=== PATIENT | female | born 1955 | race Caucasian/White ===

== ENCOUNTER 2017-05-20 16:54 | Emergency (ER) | payer BC ==
[~2017-05-20] VITALS: Ht 160 cm; Wt 99.8 kg
--- NOTE | 2017-05-20 17:05 | Emergency Room Report ---
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 Clinical Suspician of Infection? Mental Status: Sepsis Risk: Have you (or family members/close friends) recently traveled outside the [place]? If Yes, where/when: Have you had exposure to infectious disease within the past month? TB? Other? Specify: Source patient, RN notes reviewed Exam Limitations no limitations Comment Pt is on Xarelto for blood clots and pulmonary emboli and today was pulling weeds and fell about 4 feet and hit head on concrete. No LOC but pain in head, neck and left wrist and abrasions left hand and hematoma on right side of occiput. Cardiac Chest Pain Chest pain indicative of cardiac No ALLERGIES Coded Allergies: codeine (HALLUCINATIONS 05/20/17) Home Medications Reported Medications [XARELTO] (Unknown Dose) PO DAILY Hydrochlorothiazide (Hydrochlorothiazide 12.5MG) 12.5 MG PO DAILY Omeprazole 20 MG PO DAILY [METOPROLOL] (Unknown Dose) PO DAILY [LISINOPRIL] (Unknown Dose) PO DAILY History Medical History Surgical Hx Previous Surgery? Tonsillectomy, Laparoscopy to look at tubes and ovaries Review of Systems All Other Systems Reviewed and Negative Constitutional see HPI Musculoskeletal see HPI Psychiatric/Neurological see HPI Physical Exam Vital Signs Vital Signs Date Time Temp Pulse Resp B/P Pulse O2 O2 Flow FiO2 Ox Delivery Rate 05/208 54 18 142/46 95 05/20 1832 18 05/20 1759 47 16 160/55 95 05/20 1659 98.7 51 18 94 General Appearance normal appearance, WD/WN, no apparent distress Eye Exam - bilateral eye normal exam, bilateral eye PERRL, bilateral eye EOMI Neck tender midline Respiratory Status No: respiratory distress. Lung Sounds bilateral: normal breath sounds. 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 No Results/Orders Current Medication Orders Sig/Jimmy Start time Last Medication Dose Route Stop Time Status Admin Diphtheria/Pertussis/ 0 .STK-MED ONE 05/20 1830 DC Tetanus Vacc IM Hydrocodone Bitart/ 1 TAB ONCE ONE 05/20 1830 DCr 05/20 Acetaminophen PO 05/20 1831 183 Hydrocodone Bitart/ 0 .STK-MED ONE 05/20 1830 DCr Acetaminophen PO Diphtheria/Pertussis/ 0.5 ML ONCE ONE 05/20 171 DC 05/20 Tetanus Vacc IM 05/20 1716 1833 Orders Procedure Date/time Status DIET-NOTHING BY MOUTH 05/[address] HEAD REQ 05/[address] SCAN REQ 05/20 1706 Complete Procedures Laceration/Wound Repair Laceration/Wound Repair Risks/benefits discussed with pt/guardian? Yes Tetanus status not up to date, Given Tdap in ED Wound Location head Wound Length (cm) 5 Wound's Depth, Shape sucutaneous tissue, irregular, stellate Wound Explored clean Risk of retained FB explained to pt/guardian? No Irrigated w/ Saline (ccs) 5 Wound Prep Hibiclens, Saline Anesthesia 1% Lidocaine Volume Anesthetic (ccs) 8 Wound Debrided none Wound Repaired With sutures Suture Size/Type 3:0, Ethilon Layer Closure No Total Number Sutures 7 Sterile Dressing Applied Yes Splint Applied No Departure Departure Time of Disposition 1899 Disposition DC Home or Self Care(routine) Clinical Impression Primary Impression: Closed head injury Qualifiers: Encounter type: initial encounter Qualified Code: S09.90XA - Unspecified injury of head, initial encounter Secondary Impressions: Occipital scalp laceration Qualifiers: Encounter type: initial encounter Qualified Code: S01.01XA - Laceration without foreign body of scalp, initial encounter Condition STABLE Patient Instructions Closed Head Injury, Concussion, DI for Closed Head Injury, DI for Concussion, DI for Laceration Repair, Laceration Repair Additional Instructions Follow Head Injury instructions for next 24 to 48 hours. Return to the ED with any worsening symptoms. Followup with PCP in 3 days to check stitches and in 10 days to remove them Discharge Counseling Counseled pt/family regarding diagnosis, test results, medications/RX, home care, follow up needs Prescriptions Current Visit Scripts Cephalexin (Keflex 500MG) 500 MG PO QID #40 CAP ED Critical Care Critical Care No If Critical Care minutes are documented, the time involved in the performance of seperately reportable procedures was not counted toward critical care time documented. I directly delivered medical care to this critically ill and/or injured patient. Timely evaluation and treatment was necessary to address the significant organ system(s) dysfunction present in this patient. at 1905
--- NOTE | 2017-05-20 18:06 | RADIOLOGY REPORT PS360 ---
CT HEAD WITHOUT CONTRAST CT BONE WINDOWS included ORDERING PHYSICIAN : Chen Akhtar MD PATIENT AGE: 62 years GENDER: Female PROCEDURE: Routine axial images headwithout contrast. Brain & bone windows HISTORY: FALL WITH HEAD INJURY. Patient still 4 feet onto concrete stairs. Laceration right posterior head overlying posterior superior skull on right.. Patient on blood thinners COMPARISON: No previous studies for comparison FINDINGS: No acute intracranial findings. No hemorrhage. . No mass effect or mass lesion. No subdural nor extra-axial collection. Ventricles & basal cisterns appear satisfactory. Gant & white matter patterns satisfactory. The posterior fossa appear satisfactory and unremarkable. The skull is intact. Prominent scalp hematoma overlying the right posterior parietal bone towards convexity.. Overlying dressing seen here. Underlying skull intact in this region. The visualized portions of the paranasal sinuses are clear. Mastoid air cells, middle ear & IACs are unremarkable. IMPRESSION:...... No acute intracranial findings. No hemorrhage. No subdural collections. Prominent scalp hematoma overlying the posterior right parietal bone.-Underlying skull intact no skull fracture
--- NOTE | 2017-05-20 18:17 | RADIOLOGY REPORT PS360 ---
CT CERVICAL SPINE W/O CONT HISTORY: FALL WITH HEAD INJURY fell hit head on concrete posterior right parietal region. Headache. Neck pain Patient Age: 62 years: Female Ordering Physician: Chen Akhtar MD TECHNIQUE: Helical CT scanning performed through cervical spine; with sagittal and coronal reconstructions on CT workstation. COMPARISON :None FINDINGS Cervical spine intact, with no fracture nor subluxation. . The vertebral bodies appear intact with no compression fracture.. Nonspecific straightening cervical spine may merely be positional or can reflect muscle spasm from recent injury. Prevertebral soft tissues appear satisfactory. The C1-C2 relationships appear satisfactory & normal. Facets intact With normal relationships.. There are degenerative disc changes and spondylosis at several levels cervical spine. Only scant degenerative changes involving facets. C2/3. Disc intact. C3/4 disc well-maintained C4/5. Degenerative disc space narrowing with diffuse posterior hypertrophic ridging, with posterior spurring seen to the right and left paracentral. Features slightly indents the thecal sac and yield at least mild bilateral foraminal and recess encroachment. Degenerative features most notable at this level C5-C6 minor disc space narrowing but no significant findings otherwise. C6/7. Prominent disc space narrowing with mild posterior hypertrophic ridging slightly more evident than left. The slightly the thecal sac the left encroach upon entry left neural foramen: C7/T1. Moderate disc space narrowing mild uncovertebral joint hypertrophy T1/2. Marked degenerative disc space narrowing with moderate uncovertebral joint hypertrophy bilaterally which yields mild/moderate bilateral foraminal encroachment, most notable to the left. Thyroid gland appears generous bilaterally. Borderline to mildly enlarged. Scattered small/moderate nodes are seen throughout the neck... IMPRESSION 1. no acute fracture nor subluxation cervical spine. 2. Nonspecific straightening. May merely be positional or could reflect reflect muscle spasm from recent injury 3.Multilevel Degenerative changes cervical spine as detailed in text. Most notable degenerative disc space narrowing, cervical spondylosis & posterior ridging is seen at C4/5, & T1/T2. Moderate disc space narrowing seen at C 6/7 and C7/T1
--- NOTE | 2017-05-20 18:50 | RADIOLOGY REPORT PS360 ---
WRIST-3 VIEWS-LT portable HISTORY: fall with injuryfall with injury. Patient Age: 62 years: Female Ordering Physician: Chen Akhtar MD TECHNIQUE: 3 views left wrist-portable exam COMPARISON :None available FINDINGS Somewhat unclear as to why this study was performed portable however there are fairly good images. No prominent fracture. The carpals appear intact. Distal ulna intact. However on frontal projection there is very subtle cortical contour irregularity along the radial margin of the cortex here at radial styloid of the distal radius. This Only seen on on the AP projection.. Could reflect minor cortical contour variation,, and undulation but but if there is focal pain in this site ( along the radial margin of radial styloid)) would recommend follow-up studies.. A follow-up wrist series in the department possibly old magnification views may be of benefit Borderline/mild narrowing at the first carpal-metacarpal joint suggesting scant degenerative changes here IMPRESSION. No prominent nor definitive fracture. A would note very slight cortical undulation or irregularity seen seen at the radial margin of radial styloid.. This May reflect normal variation but there is focal pain here follow-up studies recommended as outlined above
[2017-05-20 19:17] VITALS: BP 138/54
--- OUTSIDE RECORDS SUMMARY | 2017-05-30 23:24 | External Medical Summary Rpt | CCD ---
Author Author , YOSEF NAVSA Address Unknown Phone Purpose Continuity of Care Document - 09-14-2011 through 2016
--- OUTSIDE RECORDS SUMMARY | 2017-05-30 23:24 | External Medical Summary Rpt | CCD ---
Author Author [employer] Organization [employer] Address Unknown Phone Unavailable Purpose Continuity of Care Document - through 2016
--- OUTSIDE RECORDS SUMMARY | 2017-05-30 23:24 | External Medical Summary Rpt | CCD ---
Author Author , YOSEF NAVAS Address Unknown Phone [email or web address] Purpose Continuity of Care Document - 09-14-2011 through 2016
--- OUTSIDE RECORDS SUMMARY | 2017-05-30 23:24 | External Medical Summary Rpt | CCD ---
Demographics Preferred Language Kazakh Marital Status Unknown Anabaptism Affiliation Unknown Race Unknown Ethnic Group Unknown Author Author , YOSEF NAVAS Address Unknown Phone Immunization Unable to retrieve immunization data due to connection failure with Immunization Registry. Please try again later.
--- OUTSIDE RECORDS SUMMARY | 2017-05-30 23:24 | External Medical Summary Rpt | CCD ---
Demographics Preferred Language Ivorian Marital Status Unknown Baptist Affiliation Unknown Race Unknown Ethnic Group Unknown Author Author , YOSEF NAVAS Address Unknown Phone Immunization Unable to retrieve immunization data due to connection failure with Immunization Registry. Please try again later.
--- OUTSIDE RECORDS SUMMARY | 2017-05-30 23:27 | External Medical Summary Rpt ---
Author Author [employer], [employer] Organization [employer] Address Unknown Phone Unavailable Results WRIST LT Observa Value Referen Units Interpr Notes Date tion ce etation Range TEXT [place] No No No No May 23 DIAGNOS informa informa informa informa 2016 IS [place] tion in tion in tion in tion in 12:07 BATTERY l source source source source PM HealthE data data data data MRMCDep artment of Diagnos [id number] [place] [phone] Patient : Sex: Age: Unit Number: STEVE BERMUDEZ F F 62 [id number] 180Orde ne Physici an: Status: Date of : Account Number: LINUS BROWN APRN REG CLI 953 [id number] ritika Lundberg an: Locatio n: Room Number: Date of 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 No additio nalfrac tures are identif ied. There are no lytic or blastic lesions identif ied.Imp ression :Questi onable lucency along the medial hamate or pisifor m whichco uld represe nt acute nondisp laced fractur eSite 1 ____Ele ctronic ally signed by: ALEXANDER FIGUEROASD ate: 7Time: 12:10__ ___KINDRA Nevarez BEAR MDDicta vicente: 7 1207Sig kenroy : 7 1210 SURGICAL PATHOLOGY IV INITIAL Observa Value Referen Units Interpr Notes Date tion ce etation Range TEXT PRE-OPE No No No No May 15 DIAGNOS RATIVE informa informa informa informa 2016 IS DIAGNOS tion in tion in tion in tion in BATTERY IS source source source source data data data data TEXT ACTINIC No No No No May 15 DIAGNOS informa informa informa informa 2016 IS KERATOS tion in tion in tion in tion in BATTERY IS VS. source source source source BASAL data data data data CELL CARCINO MA TEXT GROSS No No No No May 15 DIAGNOS DESCRIP informa informa informa informa 2016 IS TION tion in tion in tion in tion in BATTERY source source source source data data data data TEXT The No No No No May 15 DIAGNOS specime informa informa informa informa 2016 IS n is tion in tion in tion in tion in BATTERY receive source source source source d data data data data within formali n in one contain er labeled "right lateral superio r TEXT chest". No No No No May 15 DIAGNOS It informa informa informa informa 2016 IS consist tion in tion in tion in tion in BATTERY s of a source source source source pichardo data data data data shaved portion of skin measuri ng 10 mm. in diamete r x less TEXT than 1 No No No No May 15 DIAGNOS mm. informa informa informa informa 2017 IS thick. tion in tion in tion in tion in BATTERY It is source source source source bisecte data data data data d and entirel y submitt ed in one block. TEXT MICROSC No No No No May 15 DIAGNOS OPIC informa informa informa informa 2017 IS INTERPR tion in tion in tion in tion in BATTERY ETATION source source source source data data data data TEXT SKIN, No No No No May 15 DIAGNOS RIGHT informa informa informa informa 2017 IS LATERAL tion in tion in tion in tion in BATTERY source source source source SUPERIO data data data data R CHEST, SHAVE BIOPSY: TEXT LICHENO No No No No May 15 DIAGNOS ID informa informa informa informa 2017 IS KERATOS tion in tion in tion in tion in BATTERY IS source source source source data data data data TEXT CODES: No No No No May 15 DIAGNOS [id number] informa informa informa informa 2017 IS - Skin, tion in tion in tion in tion in BATTERY NOS source source source source data data data data TEXT [id number] No No No No May 15 DIAGNOS - informa informa informa informa 2017 IS Thorax, tion in tion in tion in tion in BATTERY NOS source source source source data data data data TEXT SKIN No No No No May 15 DIAGNOS informa informa informa informa 2017 IS tion in tion in tion in tion in BATTERY source source source source data data data data TEXT [id number] No No No No May 15 DIAGNOS - informa informa informa informa 2017 IS SKIN\\F\\ tion in tion in tion in tion in BATTERY Hyperke source source source source ratosis data data data data TEXT [id number] No No No No May 15 DIAGNOS - informa informa informa informa 2017 IS SKIN\\F\\ tion in tion in tion in tion in BATTERY Shave source source source source biopsy data data data data TEXT COPIES No No No No May 15 DIAGNOS TO: informa informa informa informa 2017 IS tion in tion in tion in tion in BATTERY source source source source data data data data TEXT TAYLOR,S No No No No May 15 DIAGNOS SONYA E informa informa informa informa 2017 IS MD tion in tion in tion in tion in BATTERY source source source source data data data data TEXT 111 No No No No May 15 DIAGNOS LISA informgeri informa informa informa 2017 IS DRIVE tion in tion in tion in tion in BATTERY source source source source data data data data TEXT POB 6 No No No No May 15 DIAGNOS informa informa informa informa 2017 IS tion in tion in tion in tion in BATTERY source source source source data data data data TEXT DANVILL No No No No May 15 DIAGNOS E, [place] inform[place] informa informa [place] 2017 [place] [address] tion in tion in tion in tion in BATTERY source source source source data data data data TEXT [id number] No No No No May 15 DIAGNOS 6-0916 informa informa informa informa 2017 IS tion in tion in tion in tion in BATTERY source source source source data data data data TEXT WORKMAN No No No No May 15 DIAGNOS ,TOVA informa informa informa informa 2017 IS PA tion in tion in tion in tion in BATTERY source source source source data data data data TEXT 111 No No No No May 15 DIAGNOS LISA informa informa informa informa [address], PO tion in tion in tion in tion in BATTERY [address] source source source source data data data data TEXT DANVILL No No No No May 15 DIAGNOS E, [place] inform[place] [address] tion in tion in tion in tion in BATTERY source source source source data data data data TEXT [phone] No No No No May 15 DIAGNOS 6-0916 informa informa informa informa 2017 IS tion in tion in tion in tion in BATTERY source source source source data data data data TEXT ICD No No No No May 15 DIAGNOS CODES: informa informa informa informa 2017 IS 700 - tion in tion in tion in tion in BATTERY CORNS source source source source AND data data data data CALLOSI TIES TEXT ORDER No No No No May 15 DIAGNOS QUERIES informa informa informa informa 2017 IS : tion in tion in tion in tion in BATTERY source source source source data data data data TEXT Labels No No No No May 15 DIAGNOS 1 informa informa informa informa 2017 IS tion in tion in tion in tion in BATTERY source source source source data data data data TEXT PROCEDU No No No No May 15 DIAGNOS RES: informa informa informa informa 2017 IS SURGICA tion in tion in tion in tion in BATTERY L source source source source PATHOL data data data data ( ) TEXT SURGICA No No No No May 15 DIAGNOS L informa informa informa informa 2017 IS (05/16/ tion in tion in tion in tion in BATTERY 17-1016 source source source source ) data data data data TEXT TISSUES No No No No May 15 DIAGNOS : informa informa informa informa 2016 IS tion in tion in tion in tion in BATTERY source source source source data data data data TEXT SKIN - No No No No May 15 DIAGNOS RIGHT informa informa informa informa 2016 IS LATERAL tion in tion in tion in tion in BATTERY source source source source SUPERIO data data data data R CHEST TEXT Signed No No No No May 15 DIAGNOS informa informa informa informa 2016 IS ___(sig tion in tion in tion in tion in BATTERY nature source source source source on data data data data file)__ __ MARCE BEAL MD 7 0958 MADIA Observa Value Referen Units Interpr Notes Date tion ce etation Range TEXT [place] No No No No Feb 27 DIAGNOS informa informa informa informa 2016 IS [place] tion in tion in tion in tion in 2:02 PM BATTERY l source source source source HealthE data data data data MRMCDep artment of Diagnos [id number] [place] [phone] Patient : Sex: Age: Unit Number: STEVE BERMUDEZ F 61 [id number] 180Orde ring Physici an: Status: Date of : Account Number: BILLY SANZ MD REG CLI 953 [id number] ritika Physici an: Locatio n: Room Number: Date of Exam:LUCIA LYON [facility] 7REASON FOR EXAM: SCREEN Z12.31R NEDRA FOR VISIT: R92.0,M AMMOGRA PHIC MICROCA LCIFICA TION [facility] # [id number] __Diagn ostic digital mammogr am with CAD and tomosyn thesisI NDICATI ON: Diagnos tic mammogr am. Patient reports prior benignr ight breast biopsy; mother with a history of breast cancerC OMPARIS ON: 017, 016, 016, 015,06/2014 TECHNIQ UE: Bilater al digital MLO, CC, ML views with CAD andtomo synthes is.FIND INGS:Th e breast parench yma is heterog eneousl y dense which limits thesens itivity and specifi city of mammogr aphy. Biopsy clips arenote d at the previou [facility] describ ed concern ing calcifi cations withthe se calcifi cations now removed . There are no masses, suspici ous calcifi cations or areas of archite ctural distort ion.Imp ression :Negati ve Mammogr am (BIRADS categor y 1).Rose er A.RECOM MENDATI ON: Yearly screeni ng mammogr am.Site 2 ____Ele ctronic ally signed by: YOSSI Herrera te: 7Time: 14:06__ ___SAVANNA DOVE MDDicta vicente: 7 1402Sig kenroy : 7 1406 THYROID STIMULATING HORMONE Observa Value Referen Units Interpr Notes Date tion ce etation Range THYROID < 0.02 0.46 - uIU/mL Low No December 27 4.68 informa 2016 STIMULA tion in 3:33 PM TING source HORMONE data FREE T4 Observa Value Referen Units Interpr Notes Date tion ce etation Range FREE T4 1.29 0.78 - ng/dL Normal No December 27 2.19 informa 2016 tion in 3:06 PM source data [id number] Observa Value Referen Units Interpr Notes Date tion ce etation Range TEXT [place] No No No No December 26 DIAGNOS informa informa informa informa 2016 IS [place] tion in tion in tion in tion in 1:43 PM BATTERY l source source source source HealthE data data data data MRMCDep artment of Diagnos [id number] [place] [phone] Patient : Sex: Age: Unit Number: STEVE BERMUDEZ F 61 [id number] 180Orde ne Physici an: Status: Date of : Account Number: 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 No focal hot or cold nodule isappre ciated. The 4 hour tracer uptake is 1.8% (normal 5-20%). 24 hour uptakev alue is 6.6% (normal 7-35%). Impress ion:Low thyroid uptake at 4 and 24 hours. Correla te forthyr oiditis . Exogeno us iodine uptake can give a similar appeara nce.Sit e 2 ____Ele ctronic ally signed by: YOSSI Herrera te: 7Time: 13:46__ ___SAVANNA DOVE MDDicta vicente: 7 1343Sig kenroy : 7 1346 METHYLMALONIC ACID, SERUM Observa Value Referen Units Interpr Notes Date tion ce etation Range METHYLM 126 0 - 378 nmol/L Normal Perform Oct 31 ALONIC ed at: 2017 ACID, BN - 6:14 AM SERUM [facility] [place], [place] [address] 61Lab Directo r: Joey Ferro MD, Phone: [phone] VITAMIN B12 Observa Value Referen Units Interpr Notes Date ti ce etation Range VITAMIN 583 239 - pg/mL Normal No Nov 13 B12 931 informa 2017 tion in 5:23 PM source data ABDPELINF Observa Value Referen Units Interpr Notes Date ti ce etation Range TEXT Vincenzo No No No No Oct 24 DIAGNOS informa informa informa informa 2017 IS [place] tion in tion in tion in tion in 6:38 AM BATTERY l source source source source HealthE data data data data MRMCDep artment of Diagnos [id number] [facility] JURGEN rodríguez [phone] Patient : Sex: Age: Unit Number: STEVE BERMUDEZ F 61 [id number] 180Orde ring Physici an: Status: Date of : Account Number: KAELA WELCH MD [facility] ER 953 [id number] ritika Lundberg an: Locatio n: Room Number: Date of Exam:LUCIA LYON EE 7REASON FOR EXAM: rlq abdomin alREASO N FOR VISIT: SEVERE ABDOMIN AL PAIN-RT SIDEACC ESSION # [id number] _CT OF THE ABDOMEN AND PELVIS WITH IV CONTRAS T ONLYInd ication : Right lower quadran t painThi n axial imaging was perform ed through the abdomen and pelvisa fter IV contras t only. Multipl mariya reforma ts were thenper formed. Automat ed exposur e control was utilize d to optimiz edose reducti on.Surg ical history : NoneSma ll hiatal hernia is present . The liver, spleen, adrenal s,gallb ladder, pancrea s, are all unremar kable. Multipl e left renalcy sts are noted. Otherwi se kidneys are unremar kable. Urinary bladder and uterus are unremar kable. Appendi x is normal. Smallbo wel and colon are unremar kable. No bowel obstruc tion is seen.Peggy ng bases are clear. No free fluid or pneumop eritone um is seen.Im pressio n:No acute process is seen in the abdomen or pelvis to explain patient 's pain.Hi atal hernia with fluid filled esophag us. Further assessm entwith upper GI or endosco py may be helpful if clinica haroldo cated.S ite 1 ____Ele ctronic ally signed by: DAVON Reynolds te: 7Time: 07:57__ ___TIMO FOREST LOZANO MDDicta vicente: 7 0638Sig kenroy : 7 0757 C-REACTIVE PROTEIN Observa Value Referen Units Interpr Notes Date tion ce etation Range C-REACT < 0.5 <1.0 mg/dL Normal No Nov 09 LYNDSEY inform2016 PROTEIN tion in 10:48 source PM data TROPONIN I (INITIAL) Observa Value Referen Units Interpr Notes Date tion ce etation Range TROPONI < 0.010 <=0.034 ng/mL Normal <= Nov 09 N I 0.034 2016 (INITIA ( 10:39 L) PERCENT PM ILE OF NORMAL POPULAT ION)>= 0.120 (AMI CUTOFF) ALL RESULTS MUST BE CORRELA VICENTE WITH CLINICA L FINDING S COMPREHENSIVE METABOLIC PANEL Observa Value Referen Units Interpr Notes Date tion ce etation Range GLUCOSE 116 70 - mg/dL High No Nov 09 100 inform2016 tion in 10:29 source PM data BLOOD 17 7 - 25 mg/dL Normal No Nov 09 UREA 2016 NITROGE tion in 10:29 N source PM data CREATIN 0.94 0.50 - mg/dL Normal No Nov 09 INE 1.20 informa 2017 tion in 10:29 source PM data GLOMERU > 60 >60 No Normal GFR is Nov 09 LAR informa only 2017 FILTRAT tion in calcula 10:29 ION source vicente for PM RATE data patient s over 18 years of age anddoes not allow for race. Units are mL/min/ 1.73 m2. BUN/CRE 18.0 10.0 - No Normal No Nov 09 ATININE 20.0 informa informa 2017 RATIO tion in tion in 10:29 source source PM data data SODIUM 139 137 - mmol/L Normal No Nov 09 145 informa 2016 tion in 10:29 source PM data POTASSI 3.3 3.5 - mmol/L Low No Nov 09 UM 5.1 inform2016 tion in 10:29 source PM data CHLORID 101 98 - mEq/L Normal No Nov 09 E 109 informa 2016 tion in 10:29 source PM data CARBON 26.0 22.0 - mEq/L Normal No Nov 09 DIOXIDE 30.0 informa 2016 tion in 10:29 source PM data ANION 12.0 No No Normal No Nov 09 GAP informa informa informa 2017 tion in tion in tion in 10:29 source source source PM data data data CALCIUM 9.0 8.4 - mg/dL Normal No Nov 09 10.2 inform2016 tion in 10:29 source PM data TOTAL 7.7 6.3 - g/dL Normal No Nov 09 PROTEIN 8.2 inform2016 tion in 10:29 source PM data ALBUMIN 4.6 3.5 - g/dL Normal No Nov 09 5.0 informa 2016 tion in 10:29 source PM data BILIRUB 0.9 0.2 - mg/dL Normal No Nov 09 IN,TOTA 1.3 informa 2016 L tion in 10:29 source PM data ASPARTA 32 15 - 46 U/L Normal No Nov 09 TE inform2016 AMINOTR tion in 10:29 ANSFERA source PM SE/AST data ALANINE 39 13 - 69 U/L Normal No Nov 09 inform2016 AMINOTR tion in 10:29 ANSFERA source PM SE/ALT data ALKALIN 64 38 - U/L Normal No Nov 09 E 126 inform2016 PHOSPHA tion in 10:29 TASE source PM data AMYLASE Observa Value Referen Units Interpr Notes Date tion ce etation Range AMYLASE 62 30 - U/L Normal No Nov 09 110 informa 2017 tion in 10:29 source PM data LIPASE Observa Value Referen Units Interpr Notes Date tion ce etation Range LIPASE 61 23 - U/L Normal No Nov 09 300 informa 2016 tion in 10:29 source PM data CBC WITH AUTO DIFFERENTIAL Observa Value Referen Units Interpr Notes Date tion ce etation Range WHITE 8.12 4.00 - THOU/uL Normal No Nov 09 BLOOD 11.00 informa 2017 COUNT tion in 10:15 source PM data RED 5.27 4.20 - MILL/uL Normal No Nov 09 BLOOD 5.40 informa 2017 COUNT tion in 10:15 source PM data HEMOGLO 15.0 12.0 - g/dL Normal No Nov 09 BIN 16.0 informa 2017 tion in 10:15 source PM data HEMATOC 45.3 38.0 - % Normal No Nov 09 RIT 47.0 informa 2017 tion in 10:15 source PM data MEAN 86.0 82.0 - fL Normal No Nov 09 CORPUSC 100.0 informa 2017 ULAR tion in 10:15 VOLUME source PM data MEAN 28.5 26.0 - pg Normal No Nov 09 CORPUSC 33.0 informa 2017 ULAR tion in 10:15 HEMOGLO source PM BIN data MEAN 33.1 31.0 - g/dL Normal No Nov 09 CORPUSC 36.0 informa 2016 ULAR tion in 10:15 HGB source PM CONC data RED 13.7 11.5 - % Normal No Nov 09 CELL 14.5 informa 2017 DISTRIB tion in 10:15 UTION source PM WIDTH data PLATELE 288 150 - THOU/uL Normal No Nov 09 T COUNT 375 informa 2016 tion in 10:15 source PM data MEAN 9.0 8.6 - fL Normal No Nov 09 PLATELE 11.7 informa 2017 T tion in 10:15 VOLUME source PM data IMM < 3 <3 % Normal No Nov 09 GRANULO informa 2017 CYTE % tion in 10:15 source PM data NEUTROP 75.5 No % Normal No Nov 09 HILS % informa informa 2017 tion in tion in 10:15 source source PM data data LYMPH % 13.9 No % Normal No Nov 09 informa informa 2017 tion in tion in 10:15 source source PM data data MONO % 8.3 No % Normal No Nov 09 informa informa 2017 tion in tion in 10:15 source source PM data data EOS % 1.6 No % Normal No Nov 09 informa informa 2017 tion in tion in 10:15 source source PM data data BASO % 0.5 No % Normal No Nov 09 informa informa 2017 tion in tion in 10:15 source source PM data data NEUTROP 6.13 1.50 - THOU/uL Normal No Nov 09 HIL, 7.00 informa 2016 ABSOLUT tion in 10:15 E source PM data LYMPH, 1.13 1.00 - THOU/uL Normal No Nov 09 ABSOLUT 4.00 informa 2016 E tion in 10:15 source PM data MONO, 0.67 0.00 - THOU/uL Normal No Nov 09 ABSOLUT 1.00 informa 2016 E tion in 10:15 source PM data EOS, 0.13 0.00 - THOU/uL Normal No Nov 09 ABSOLUT 0.40 informa 2016 E tion in 10:15 source PM data BASO, 0.04 0.00 - THOU/uL Normal No Nov 09 ABSOLUT 0.20 informa 2016 E tion in 10:15 source PM data URINE CULTURE Observa Value Referen Units Interpr Notes Date tion ce etation Range URINE NO No No No No Nov 11 CULTURE GROWTH informa informa informa informa 2016 REPORT AT 2 tion in tion in tion in tion in 9:07 AM DAYS source source source source data data data data UA C\\T\\S IF INDICATED W/MICRO Observa Value Referen Units Interpr Notes Date tion ce etation Range COLOR YELLOW No No Normal No Nov 09 informa informa informa 2017 tion in tion in tion in 9:42 PM source source source data data data APPEARA HAZY No No Normal No Nov 09 NCE informa informa informa 2017 tion in tion in tion in 9:42 PM source source source data data data GLUCOSE NEGATIV NEGATIV mg/dL Normal No Nov 09 E E informa 2016 tion in 9:42 PM source data BILIRUB NEGATIV NEGATIV mg/dL Normal No Nov 09 IN E E informa 2016 tion in 9:42 PM source data KETONE NEGATIV NEGATIV mg/dL Normal No Nov 09 E E informa 2016 tion in 9:42 PM source data SPECIFI 1.016 1.003 - No Normal No Nov 09 C 1.035 informa informa 2017 GRAVITY tion in tion in 9:42 PM source source data data BLOOD >=1.0 NEGATIV mg/dL Abnorma No Nov 09 E l informa 2016 tion in 9:42 PM source data pH 5.0 5.0 - No Normal No Nov 09 9.0 informa informa 2017 tion in tion in 9:42 PM source source data data PROTEIN NEGATIV NEGATIV mg/dL Normal No Nov 09 E E informa 2016 tion in 9:42 PM source data UROBILI NORMAL <2 mg/dL Normal No Nov 09 NOGEN informa 2017 tion in 9:42 PM source data NITRITE NEGATIV NEGATIV No Normal No Nov 09 E E informa informa 2017 tion in tion in 9:42 PM source source data data LEUKOCY 250 NEGATIV LUZ MARINA/uL Abnorma No Nov 09 TE E l informa 2017 ESTERAS tion in 9:42 PM E source data RBC >30 No /hpf Normal No Nov 09 informa informa 2017 tion in tion in 9:42 PM source source data data WBC >30 No /hpf Normal No Nov 09 informa informa 2017 tion in tion in 9:42 PM source source data data SQUAMOU 0-5 No /hpf Normal No Nov 09 S informa informa 2017 EPITHEL tion in tion in 9:42 PM IAL source source CELLS data data CALCIUM 2+ No /hpf Normal No Nov 09 informa informa 2017 OXALATE tion in tion in 9:42 PM source source CRYSTAL data data S BACTERI TRACE No /hpf Normal No Nov 09 A informa informa 2017 tion in tion in 9:42 PM source source data data MUCUS TRACE No /lpf Normal No Nov 09 informa informa 2017 tion in tion in 9:42 PM source source data data Specime CLEAN No No No No Nov 09 n Type CATCH informa informa informa informa 2017 tion in tion in tion in tion in 9:25 PM source source source source data data data data BASIC METABOLIC PANEL Observa Value Referen Units Interpr Notes Date tion ce etation Range GLUCOSE 72 70 - mg/dL Normal No Nov 06 100 informa 2017 tion in 6:32 AM source data BLOOD 15 7 - 25 mg/dL Normal No Nov 06 UREA informa 2017 NITROGE tion in 6:32 AM N source data CREATIN 0.83 0.50 - mg/dL Normal No Nov 06 INE 1.20 informa 2017 tion in 6:32 AM source data GLOMERU > 60 >60 No Normal GFR is Mar 20 LAR informa only 2017 FILTRAT tion in calcula 6:32 AM ION source vicente for RATE data patient s over 18 years of age anddoes not allow for race. Units are mL/min/ 1.73 m2. BUN/CRE 18.0 10.0 - No Normal No Nov 06 ATININE 20.0 informa informa 2017 RATIO tion in tion in 6:32 AM source source data data SODIUM 141 137 - mmol/L Normal No Nov 06 145 informa 2016 tion in 6:32 AM source data POTASSI 4.2 3.5 - mmol/L Normal No Nov 06 UM 5.1 informa 2017 tion in 6:32 AM source data CHLORID 107 98 - mEq/L Normal No Nov 06 E 109 informa 2016 tion in 6:32 AM source data CARBON 26.7 22.0 - mEq/L Normal No Nov 06 DIOXIDE 30.0 informa 2017 tion in 6:32 AM source data CALCIUM 8.7 8.4 - mg/dL Normal No Nov 06 10.2 informa 2016 tion in 6:32 AM source data MAGNESIUM Observa Value Referen Units Interpr Notes Date tion ce etation Range MAGNESI 1.9 1.3 - mEq/L Normal No Nov 06 UM 1.9 informa 2017 tion in 6:32 AM source data LIPID PROFILE Observa Value Referen Units Interpr Notes Date tion ce etation Range CHOLEST 125 115 - mg/dL Normal No Nov 06 OTTO 200 informa 2017 tion in 6:32 AM source data TRIGLYC 74 <150 mg/dL Normal No Nov 06 ERIDES informa 2017 tion in 6:32 AM source data HDL 44 >39 mg/dL Normal No Nov 06 CHOLEST informa 2017 OTTO tion in 6:32 AM source data LDL 66 <100 mg/dL Normal No Nov 06 CHOLEST informa 2017 OTTO tion in 6:32 AM source data VLDL 15 No mg/dL Normal No Nov 06 CHOLEST informa informa 2017 OTTO tion in tion in 6:32 AM source source data data NON-HDL 81 No mg/dL Normal Non-HDL Nov 06 informa goal 2017 CHOLEST tion in is 6:32 AM OTTO source equival data ent to the LDL goal plus 30. CHOLEST 2.8 No No Normal No Nov 06 OTTO/HD informa informa informa 2017 L RATIO tion in tion in tion in 6:32 AM source source source data data data UA C\\T\\S IF INDICATED W/MICRO Observa Value Referen Units Interpr Notes Date tion ce etation Range COLOR COLORLE No No Normal No Nov 05 SS informa informa informa 2017 tion in tion in tion in 11:07 source source source AM data data data APPEARA CLEAR No No Normal No Nov 05 NCE informa informa informa 2017 tion in tion in tion in 11:07 source source source AM data data data GLUCOSE NEGATIV NEGATIV mg/dL Normal No Nov 05 E E informa 2016 tion in 11:07 source AM data BILIRUB NEGATIV NEGATIV mg/dL Normal No Nov 05 IN E E informa 2016 tion in 11:07 source AM data KETONE NEGATIV NEGATIV mg/dL Normal No Nov 05 E E informa 2016 tion in 11:07 source AM data SPECIFI 1.002 1.003 - No Low No Nov 05 C 1.035 informa informa 2017 GRAVITY tion in tion in 11:07 source source AM data data BLOOD NEGATIV NEGATIV mg/dL Normal No Nov 05 E E informa 2016 tion in 11:07 source AM data pH 8.0 5.0 - No Normal No Nov 05 9.0 informa informa 2017 tion in tion in 11:07 source source AM data data PROTEIN NEGATIV NEGATIV mg/dL Normal No Nov 05 E E informa 2016 tion in 11:07 source AM data UROBILI NORMAL <2 mg/dL Normal No Nov 05 NOGEN informa 2016 tion in 11:07 source AM data NITRITE NEGATIV NEGATIV No Normal No Nov 05 E E informa informa 2017 tion in tion in 11:07 source source AM data data LEUKOCY NEGATIV NEGATIV LUZ MARINA/uL Normal No Nov 05 TE E E informa 2017 ESTERAS tion in 11:07 E source AM data RBC 0-2 No /hpf Normal No Nov 05 informa informa 2017 tion in tion in 11:07 source source AM data data WBC 0-5 No /hpf Normal No Nov 05 informa informa 2017 tion in tion in 11:07 source source AM data data SQUAMOU 0-5 No /hpf Normal No Nov 05 S informa informa 2017 EPITHEL tion in tion in 11:07 IAL source source AM CELLS data data BACTERI NONE No /hpf Normal No Nov 05 A OBSERVE informa informa 2016 D tion in tion in 11:07 source source AM data data Specime CLEAN No No No No Nov 05 n Type CATCH informa informa informa informa 2017 tion in tion in tion in tion in 10:58 source source source source AM data data data data CXR1 Observa Value Referen Units Interpr Notes Date tion ce etation Range TEXT Vincenzo No No No No Nov 05 DIAGNOS informa informa informa informa 2017 IS McDowel tion in tion in tion in tion in 10:45 BATTERY l source source source source AM HealthE data data data data MRMCDep artment of Diagnos [id number] [place] [phone] Patient : Sex: Age: Unit Number: STEVE BERMUDEZ 61 [id number] 180Orde ne [place] an: Status: Date of : Account Number: KAELA WELCH MD [facility] 953 [id number] ritika Lundberg an: Locatio n: Room Number: Date of Exam:LUCIA LYON [facility] 7REASON FOR EXAM: chest pressur eREASON FOR VISIT: afib episode ACCESSI ON # [id number] __Front al view of the chestIN DICATIO N: Chest pain, atrial fibrill ationCO MPARISO N: [id number] INGS: Low lung volumes with vascula r wilver winter Calcifi edgranu aimee. Calcifi ed hilar and mediast inal lymph nodes.P atchy left basilar airspac e opacity . No pneumot horax. No edema.N o effusio n. Cardiom ediasti nal contour is within normal limits. Diaphra gm is unremar kable. No acute osseous abnorma lity.Im pressio n: Male patchy left basilar airspac e opacity whichco uld represe nt atelect asis or pneumon ia.Site 1 ____Ele ctronic ally signed by: YOSSI Herrera te: 7Time: 10:46__ ___SAVANNA DOVE MDDicta vicente: 7 1045Sig kenroy : 7 1046 TROPONIN I (INITIAL) Observa Value Referen Units Interpr Notes Date tion ce etation Range TROPONI < 0.010 <=0.034 ng/mL Normal <= Nov 05 N I 0.034 2016 (INITIA ( 10:26 L) PERCENT AM ILE OF NORMAL POPULAT ION)>= 0.120 (AMI CUTOFF) ALL RESULTS MUST BE CORRELA VICENTE WITH CLINICA L FINDING S THYROID STIMULATING HORMONE Observa Value Referen Units Interpr Notes Date tion ce etation Range THYROID 0.24 0.46 - uIU/mL Low No Nov 05 4.68 informa 2016 STIMULA tion in 3:09 PM TING source HORMONE data FREE T4 Observa Value Referen Units Interpr Notes Date tion ce etation Range FREE T4 1.89 0.78 - ng/dL Normal No Nov 05 2.19 informa 2016 tion in 2:55 PM source data COMPREHENSIVE METABOLIC PANEL Observa Value Referen Units Interpr Notes Date tion ce etation Range GLUCOSE 87 70 - mg/dL Normal No Nov 05 100 informa 2017 tion in 10:15 source AM data BLOOD 17 7 - 25 mg/dL Normal No Nov 05 UREA informa 2016 NITROGE tion in 10:15 N source AM data CREATIN 0.72 0.50 - mg/dL Normal No Nov 05 INE 1.20 informa 2017 tion in 10:15 source AM data GLOMERU > 60 >60 No Normal GFR is Nov 05 LAR informa only 2017 FILTRAT tion in calcula 10:15 ION source vicente for AM RATE data patient s over 18 years of age anddoes not allow for race. Units are mL/min/ 1.73 m2. BUN/CRE 24.0 10.0 - No High No Nov 05 ATININE 20.0 informa informa 2017 RATIO tion in tion in 10:15 source source AM data data SODIUM 143 137 - mmol/L Normal No Nov 05 145 informa 2016 tion in 10:15 source AM data POTASSI 3.2 3.5 - mmol/L Low No Nov 05 UM 5.1 informa 2016 tion in 10:15 source AM data CHLORID 104 98 - mEq/L Normal No Nov 05 E 109 informa 2016 tion in 10:15 source AM data CARBON 24.2 22.0 - mEq/L Normal No Nov 05 DIOXIDE 30.0 informa 2017 tion in 10:15 source AM data ANION 14.8 No No Normal No Nov 05 GAP informa informa informa 2017 tion in tion in tion in 10:15 source source source AM data data data CALCIUM 9.2 8.4 - mg/dL Normal No Nov 05 10.2 informa 2016 tion in 10:15 source AM data TOTAL 7.3 6.3 - g/dL Normal No Nov 05 PROTEIN 8.2 informa 2016 tion in 10:15 source AM data ALBUMIN 4.3 3.5 - g/dL Normal No Nov 05 5.0 informa 2017 tion in 10:15 source AM data BILIRUB 1.3 0.2 - mg/dL Normal No Nov 05 IN,TOTA 1.3 informa 2016 L tion in 10:15 source AM data ASPARTA 28 15 - 46 U/L Normal No Nov 05 TE informa 2016 AMINOTR tion in 10:15 ANSFERA source AM SE/AST data ALANINE 41 13 - 69 U/L Normal No Nov 05 inform2016 AMINOTR tion in 10:15 ANSFERA source AM SE/ALT data ALKALIN 87 38 - U/L Normal No Nov 05 E 126 informa 2016 PHOSPHA tion in 10:15 TASE source AM data PT\\T\\APTT Observa Value Referen Units Interpr Notes Date tion ce etation Range PROTHRO 12.2 9.5 - sec High No Nov 05 MBIN 11.4 inform2016 TIME tion in 10:15 source AM data INTERNA 1.15 No No Normal Interpr Oct 19 TIONAL informa informa etation 2017 NORMALI tion in tion in of INR 10:15 ZED source source AM RATIO data data (Soil Conservationist ational Normali zed Ratio)i s depende nt upon patient 's anticoa gulant therapy .Result s greater than or equal to 4.0 are conside redcrit ical. APTT 32.7 20.4 - sec Normal No Nov 05 33.0 inform2016 tion in 10:15 source AM data CBC WITH AUTO DIFFERENTIAL Observa Value Referen Units Interpr Notes Date tion ce etation Range WHITE 5.57 4.00 - THOU/uL Normal No Nov 05 BLOOD 11.00 inform2016 COUNT tion in 10:00 source AM data RED 5.33 4.20 - MILL/uL Normal No Nov 05 BLOOD 5.40 inform2016 COUNT tion in 10:00 source AM data HEMOGLO 15.2 12.0 - g/dL Normal No Nov 05 BIN 16.0 inform2016 tion in 10:00 source AM data HEMATOC 45.5 38.0 - % Normal No Nov 05 RIT 47.0 informa 2016 tion in 10:00 source AM data MEAN 85.4 82.0 - fL Normal No Nov 05 CORPUSC 100.0 informa 2016 ULAR tion in 10:00 VOLUME source AM data MEAN 28.5 26.0 - pg Normal No Nov 05 CORPUSC 33.0 informa 2016 ULAR tion in 10:00 HEMOGLO source AM BIN data MEAN 33.4 31.0 - g/dL Normal No Nov 05 CORPUSC 36.0 informa 2016 ULAR tion in 10:00 HGB source AM CONC data RED 13.6 11.5 - % Normal No Nov 05 CELL 14.5 informa 2016 DISTRIB tion in 10:00 UTION source AM WIDTH data PLATELE 242 150 - THOU/uL Normal No Nov 05 T COUNT 375 inform2016 tion in 10:00 source AM data MEAN 9.2 8.6 - fL Normal No Nov 05 PLATELE 11.7 informa 2016 T tion in 10:00 VOLUME source AM data IMM < 3 <3 % Normal No Nov 05 GRANULO informa 2017 CYTE % tion in 10:00 source AM data NEUTROP 51.9 No % Normal No Oct 19 HILS % informa informa 2017 tion in tion in 10:00 source source AM data data LYMPH % 30.3 No % Normal No Nov 05 informa informa 2017 tion in tion in 10:00 source source AM data data MONO % 13.8 No % Normal No Nov 05 informa informa 2017 tion in tion in 10:00 source source AM data data EOS % 3.1 No % Normal No Nov 05 informa informa 2017 tion in tion in 10:00 source source AM data data BASO % 0.7 No % Normal No Nov 05 informa informa 2017 tion in tion in 10:00 source source AM data data NEUTROP 2.89 1.50 - THOU/uL Normal No Nov 05 HIL, 7.00 informa 2016 ABSOLUT tion in 10:00 E source AM data LYMPH, 1.69 1.00 - THOU/uL Normal No Nov 05 ABSOLUT 4.00 informa 2016 E tion in 10:00 source AM data MONO, 0.77 0.00 - THOU/uL Normal No Nov 05 ABSOLUT 1.00 informa 2016 E tion in 10:00 source AM data EOS, 0.17 0.00 - THOU/uL Normal No Nov 05 ABSOLUT 0.40 informa 2016 E tion in 10:00 source AM data BASO, 0.04 0.00 - THOU/uL Normal No Nov 05 ABSOLUT 0.20 informa 2016 E tion in 10:00 source AM data BDHIP Observa Value Referen Units Interpr Notes Date tion ce etation Range TEXT Vincenzo No No No No Oct 6 DIAGNOS informa informa informa informa 2017 IS McDowel tion in tion in tion in tion in 8:09 AM BATTERY l source source source source HealthE data data data data MRMCDep artment of Diagnos [id number] [place] [phone] Patient : Sex: Age: Unit Number: STEVE BERMUDEZ F 61 [id number] 180Orde ne Physici an: Status: Date of : Account Number: RACHEL GOMEZ APRN REG CLI 953 [id number] ritika Physici an: Locatio n: Room Number: Date of Exam:LUCIA LYON [facility] 7REASON FOR EXAM:RE ASON FOR VISIT: UNIQUE [place],Z 78.0ACC ESSION # [id number] __Bone mineral density Compari son: NoneInd ication : Postmen opausal Bone mineral density for the lumbar spine as well of the leftfem ur is calcula vicente. The bone mineral density of the lumbars pine is calcula vicente at 1.162 g/cm2 giving a T-score of 1.0.Thi s places the lumbar spine in the normal categor y.The bone mineral density of the left femur is calcula vicente at1.044 g/cm2 giving a T-score of 0.8. This places the bonemin eral density of the left femur in the normal categor y.Impre ssion:N ormal bone mineral density .Site 2 ____Ele ctronic ally signed by: ALEXANDER RODRIGEZ ate: 7Time: 08:09__ ___KINDRA BEAR MDDicta vicente: 7 0809Sig kenroy : 7 0809 CALCITRIOL(1,25 DI-OH VIT D) Observa Value Referen Units Interpr Notes Date tion ce etation Range CALCITR 35.0 19.9 - pg/mL Normal Perform Feb 27 IOL(1,2 79.3 ed at: 2017 5 DI-OH BN - 3:10 PM VIT D) [facility] [place] [id number] [place], [place] [id number]Lab Directo r: Joey Ferro MD, Phone: [phone] COMPREHENSIVE METABOLIC PANEL Observa Value Referen Units Interpr Notes Date tion ce etation Range GLUCOSE 77 70 - mg/dL Normal No Feb 24 100 informa 2017 tion in 3:25 PM source data BLOOD 21 7 - 25 mg/dL Normal No Feb 24 UREA informa 2017 NITROGE tion in 3:25 PM N source data CREATIN 0.75 0.50 - mg/dL Normal No Feb 24 INE 1.20 informa 2017 tion in 3:25 PM source data GLOMERU > 60 >60 No Normal GFR is Feb 24 LAR informa only 2017 FILTRAT tion in calcula 3:25 PM ION source vicente for RATE data patient s over 18 years of age anddoes not allow for race. Units are mL/min/ 1.73 m2. BUN/CRE 28.0 10.0 - No High No Feb 24 ATININE 20.0 informa informa 2017 RATIO tion in tion in 3:25 PM source source data data SODIUM 144 137 - mmol/L Normal No Feb 24 145 informa 2016 tion in 3:25 PM source data POTASSI 3.7 3.5 - mmol/L Normal No Feb 24 UM 5.1 informa 2017 tion in 3:25 PM source data CHLORID 100 98 - mEq/L Normal No Feb 24 E 109 informa 2017 tion in 3:25 PM source data CARBON 30.0 22.0 - mEq/L Normal No Feb 24 DIOXIDE 30.0 informa 2017 tion in 3:25 PM source data CALCIUM 9.3 8.4 - mg/dL Normal No Feb 24 10.2 informa 2017 tion in 3:25 PM source data TOTAL 7.6 6.3 - g/dL Normal No Feb 24 PROTEIN 8.2 informa 2017 tion in 3:25 PM source data ALBUMIN 4.5 3.5 - g/dL Normal No b 24 5.0 informa 2017 tion in 3:25 PM source data BILIRUB 1.1 0.2 - mg/dL Normal No b 24 IN,TOTA 1.3 informa 2016 L tion in 3:25 PM source data ASPARTA 96 15 - 46 U/L High No Sep 24 TE informa 2016 AMINOTR tion in 3:25 PM ANSFERA source SE/AST data ALANINE 32 13 - 69 U/L Normal No Sep 24 inform 2017 AMINOTR tion in 3:25 PM ANSFERA source SE/ALT data ALKALIN 75 38 - U/L Normal No Sep 24 E 126 inform2016 PHOSPHA tion in 3:25 PM TASE source data HEMOGLOBIN A1C Observa Value Referen Units Interpr Notes Date tion ce etation Range HEMOGLO 5.2 <6.0 % Normal Hgb A1C Sep 24 BIN A1C 2017 Correla 3:13 PM tion to Glucose HgbA1c% Mean Plasma Glucose 6% 135 mg/dL7% 170 mg/dL8% 205 mg/dL9% 240 mg/dL10 % 275 mg/dL11 % 310 mg/dL12 % 345 mg/dL CBC WITH AUTO DIFFERENTIAL Observa Value Referen Units Interpr Notes Date tion ce etation Range WHITE 6.31 4.00 - THOU/uL Normal No Sep 24 BLOOD 11.00 inform2016 COUNT tion in 2:50 PM source data RED 5.26 4.20 - MILL/uL Normal No Sep 24 BLOOD 5.40 2016 COUNT tion in 2:50 PM source data HEMOGLO 15.4 12.0 - g/dL Normal No Sep 24 BIN 16.0 informa 2017 tion in 2:50 PM source data HEMATOC 46.7 38.0 - % Normal No Sep 24 RIT 47.0 informa 2017 tion in 2:50 PM source data MEAN 88.8 82.0 - fL Normal No Sep 24 CORPUSC 100.0 informa 2016 ULAR tion in 2:50 PM VOLUME source data MEAN 29.3 26.0 - pg Normal No Sep 24 CORPUSC 33.0 informa 2016 ULAR tion in 2:50 PM HEMOGLO source BIN data MEAN 33.0 31.0 - g/dL Normal No Feb 24 CORPUSC 36.0 informa 2017 ULAR tion in 2:50 PM HGB source CONC data RED 14.4 11.5 - % Normal No Feb 24 CELL 14.5 informa 2017 DISTRIB tion in 2:50 PM UTION source WIDTH data PLATELE 275 150 - THOU/uL Normal No Feb 24 T COUNT 375 informa 2017 tion in 2:50 PM source data MEAN 9.5 8.6 - fL Normal No Feb 24 PLATELE 11.7 informa 2017 T tion in 2:50 PM VOLUME source data IMM < 3 <3 % Normal No Feb 24 GRANULO informa 2017 CYTE % tion in 2:50 PM source data NEUTROP 65.5 No % Normal No Feb 24 HILS % informa informa 2017 tion in tion in 2:50 PM source source data data LYMPH % 19.2 No % Normal No Feb 24 informa informa 2017 tion in tion in 2:50 PM source source data data MONO % 11.4 No % Normal No Feb 24 informa informa 2017 tion in tion in 2:50 PM source source data data EOS % 3.2 No % Normal No Feb 24 informa informa 2017 tion in tion in 2:50 PM source source data data BASO % 0.5 No % Normal No Feb 24 informa informa 2017 tion in tion in 2:50 PM source source data data NEUTROP 4.14 1.50 - THOU/uL Normal No Feb 24 HIL, 7.00 informa 2017 ABSOLUT tion in 2:50 PM E source data LYMPH, 1.21 1.00 - THOU/uL Normal No Feb 24 ABSOLUT 4.00 informa 2016 E tion in 2:50 PM source data MONO, 0.72 0.00 - THOU/uL Normal No Feb 24 ABSOLUT 1.00 informa 2017 E tion in 2:50 PM source data EOS, 0.20 0.00 - THOU/uL Normal No Feb 24 ABSOLUT 0.40 informa 2017 E tion in 2:50 PM source data BASO, 0.03 0.00 - THOU/uL Normal No Feb 24 ABSOLUT 0.20 informa 2016 E tion in 2:50 PM source data THY Observa Value Referen Units Interpr Notes Date tion ce etation Range TEXT [place] No No No No Sep 29 DIAGNOS informa informa informa informa 2017 IS McDowel tion in tion in tion in tion in 2:40 PM BATTERY l source source source source HealthE data data data data MRMCDep artment of Diagnos [id number] [place] [phone] Patient : Sex: Age: Unit Number: STEVE BERMUDEZ F 61 [id number] 180Orde ne Physici an: Status: Date of : Account Number: RACHEL GOMEZ APRN REG CLI 953 [id number] ritika Physici an: Locatio n: Room Number: Date of Exam:LUCIA LYON E[facility] 7REASON FOR EXAM: R79.89 OTHER SPECIFI ED ABNORMA L FINDING S OF BLOODRE ASON FOR VISIT: R79.89 OTHER SPECIFI ED ABNORMA L FINDING S OF BLOODAC CESSION # [id number] _THYROI D ULTRASO UNDIndi cation: History of abnorma l thyroid functio nsRight thyroid measure s 5.4 x 1.9 x 2.3 cm. Left thyroid measure s5.1 x 1.6 x 1.7 cm. In the inferio r right thyroid , patient hasan 8 x 9 x 5 mm nodule. In the left thyroid , patient has a 7 x 9 x 4 mm hypoech oicnodu le.Impr ession: Bilater al subcent imeter thyroid nodules . Goiter is favored .Follow up exam in 6-12 months is recomme nded.Si te 1 ____Ele ctronic ally signed by: DAVON Reynolds te: 7Time: 15:01__ ___TIMO THY Sonal LOZANO MDDicta vicente: 7 1440Sig kenroy : 7 1501 PROLACTIN Observa Value Referen Units Interpr Notes Date tion ce etation Range PROLACT 10.0 4.8 - ng/mL Normal Perform Sep 28 IN 23.3 ed at: 2016 CB - 6:10 AM [facility] [place] [id number] 69Lab Directo r: Kaiser Nj ti PhD, Phone: [phone] THYROID STIMULATING HORMONE Observa Value Referen Units Interpr Notes Date tion ce etation Range THYROID 0.17 0.46 - uIU/mL Low No Sep 8 4.68 informa 2017 STIMULA tion in 3:37 PM TING source HORMONE data FREE T4 Observa Value Referen Units Interpr Notes Date tion ce etation Range FREE T4 1.42 0.78 - ng/dL Normal No Sep 8 2.19 informa 2017 tion in 3:22 PM source data STEREO Observa Value Referen Units Interpr Notes Date tion ce etation Range TEXT [place] No No No No Sep 07 DIAGNOS informa informa informa informa 2016 IS McDowel tion in tion in tion in tion in 2:38 PM BATTERY l source source source source HealthE data data data data MRMCDep artment of Diagnos [id number] [place] [phone] Patient : Sex: Age: Unit Number: STEVE BERMUDEZ 61 [id number] 180Orde ring Physici an: Status: Date of : Account Number: BILLY SANZ MD [facility] 953 [id number] ritika Physici an: Locatio n: Room Number: Date of Exam:LUCIA LYON [facility] 7REASON FOR EXAM: RIGHT CALCS BREAST STEREO BXREASO N FOR VISIT: R92.0 MAMMOGR APHIC MICR/RT STEREO X 2ACCESS ION # [id number] __Vacuu m Assiste d Stereot actic right Breast Biopsy of two separat ecluste rs of microca lcifica tions with Specime n Radiogr aphs.Po stproce dural digital orthogo nal mammogr am on a velingoat edGroupCharger gram machine .Findin gs/Proc edure:A fter informe d consent was obtaine d, the calcifi cations in theuppe r inner right breast were localiz ed using stereot acticpa irs. Actual biopsy was perform ed by Dr. Sanz.Pr e and post fire stereot actic pairs were perform ed confirm ingloca lizatio n of the suspici ous calcifi cations . Vacuum assiste dbiopsy was then perform ed and the calcifi cations were sampled and a single stereot actic biopsy clip was placed in the surgica lbed.Sp ecimen radiogr aph: Specime n radiogr aph confirm ed the presenc eof calcifi cation in multipl e cores indicat ing that thesusp icious calcifi cations were indeed sampled . Thecalc ificati ons are in core samples 10, 11, and 12.Foll owing this the procedu re was repeate d with stereot acticlo calizat ion of the calcifi cations in the upper outer rightbr east. Again, biopsy was perform ed by Dr. Sanz. The 2ndspec imen radiogr aphs indicat ed the calcifi cations in corecyl kyaw 5.The patient tolerat ed the procedu re well and was dischar ged instabl e conditi on from the departm ent.Pos tproced ural digital orthogo nal mammogr aphic views demonst ratethe two biopsy clips in the appropr iate positio ns in the upperou ter and upper inner right breast. Impress ion:Suc cessful vacuum assiste d stereot actic biopsy of two separat ecluste rs of microca lcifica tions.S ite 1 ____Ele ctronic ally signed by: MAGNOLIA ALDRICH ate: 7Time: 14:42__ ___MAGNOLIA OLIVER MDDicta vicente: 7 1438Sig kenroy : 7 1442 STERLES Observa Value Referen Units Interpr Notes Date tion ce etation Range TEXT Vincenzo No No No No Sep 07 DIAGNOS informa informa informa informa 2017 IS McDowel tion in tion in tion in tion in 2:38 PM BATTERY l source source source source HealthE data data data data MRMCDep artment of Diagnos [id number] [place] [phone] Patient : Sex: Age: Unit Number: STEVE BERMUDEZ F 61 [id number] 180Orde ne Physici an: Status: Date of : Account Number: BILLY SANZ MD [facility] 953 [id number] ritika Physici an: Locatio n: Room Number: Date of Exam:LUCIA LYON [facility] 7REASON FOR EXAM: RIGHT BREAST STEREO BXREASO N FOR VISIT: R92.0 MAMMOGR APHIC MICR/RT STEREO X 2ACCESS ION # [id number] __Vacuu m Assiste d Stereot actic right Breast Biopsy of two separat ecluste rs of microca lcifica tions with Specime n Radiogr aphs.Po stproce dural digital orthogo nal mammogr am on a velingoat edGroupCharger gram machine .Findin gs/Proc edure:A fter informe d consent was obtaine d, the calcifi cations in theuppe r inner right breast were localiz ed using stereot acticpa irs. Actual biopsy was perform ed by Dr. Sanz.Pr e and post fire stereot actic pairs were perform ed confirm ingloca lizatio n of the suspici ous calcifi cations . Vacuum assiste dbiopsy was then perform ed and the calcifi cations were sampled and a single stereot actic biopsy clip was placed in the surgica lbed.Sp ecimen radiogr aph: Specime n radiogr aph confirm ed the presenc eof calcifi cation in multipl e cores indicat ing that thesusp icious calcifi cations were indeed sampled . Thecalc ificati ons are in core samples 10, 11, and 12.Foll owing this the procedu re was repeate d with stereot acticlo calizat ion of the calcifi cations in the upper outer rightbr east. Again, biopsy was perform ed by Dr. Sanz. The 2ndspec imen radiogr aphs indicat ed the calcifi cations in corecyl kyaw 5.The patient tolerat ed the procedu re well and was dischar ged instabl e conditi on from the departm ent.Pos tproced ural digital orthogo nal mammogr aphic views demonst ratethe two biopsy clips in the appropr iate positio ns in the upperou ter and upper inner right breast. Impress ion:Suc cessful vacuum assiste d stereot actic biopsy of two separat ecluste rs of microca lcifica tions.S ite 1 ____Ele ctronic ally signed by: MAGNOLIA ALDRICH ate: 7Time: 14:42__ ___MAGNOLIA OLIVER MDDicta vicente: 7 1438Sig kenroy : 7 1442 UNILMAM Observa Value Referen Units Interpr Notes Date tion ce etation Range TEXT [place] No No No No Sep 07 DIAGNOS informa informa informa informa 2017 IS McDowel tion in tion in tion in tion in 2:38 PM BATTERY l source source source source HealthE data data data data [facility] [id number] [place] [phone] Patient : Sex: Age: Unit Number: STEVE BERMUDEZ F 61 [id number] 180Orde ne Physici an: Status: Date of : Account Number: BILLY SANZ MD [facility] 953 [id number] ritika Lundberg an: Locatio n: Room Number: Date of Exam:LUCIA LYON [facility] 7REASON FOR EXAM: RIGHT STEREO BXREASO N FOR VISIT: R92.0 MAMMOGR APHIC MICR/RT STEREO X 2ACCESS ION # [id number] __Vacuu m Assiste d Stereot actic right Breast Biopsy of two separat ecluste rs of microca lcifica tions with Specime n Radiogr aphs.Po stproce dural digital orthogo nal mammogr am on a dedicat edmammo gram machine .Findin gs/Proc edure:A fter informe d consent was obtaine d, the calcifi cations in theuppe r inner right breast were localiz ed using stereot acticpa irs. Actual biopsy was perform ed by Dr. Sanz.Pr e and post fire stereot actic pairs were perform ed confirm ingloca lizatio n of the suspici ous calcifi cations . Vacuum assiste dbiopsy was then perform ed and the calcifi cations were sampled and a single stereot actic biopsy clip was placed in the surgica lbed.Sp ecimen radiogr aph: Specime n radiogr aph confirm ed the presenc eof calcifi cation in multipl e cores indicat ing that thesusp icious calcifi cations were indeed sampled . Thecalc ificati ons are in core samples 10, 11, and 12.Foll owing this the procedu re was repeate d with stereot acticlo calizat ion of the calcifi cations in the upper outer rightbr east. Again, biopsy was perform ed by Dr. Sanz. The 2ndspec imen radiogr aphs indicat ed the calcifi cations in corecyl kyaw 5.The patient tolerat ed the procedu re well and was dischar ged instabl e conditi on from the departm ent.Pos tproced ural digital orthogo nal mammogr aphic views demonst ratethe two biopsy clips in the appropr iate positio ns in the upperou ter and upper inner right breast. Impress ion:Suc cessful vacuum assiste d stereot actic biopsy of two separat ecluste rs of microca lcifica tions.S ite 1 ____Ele ctronic ally signed by: MAGNOLIA ALDRICH ate: 7Time: 14:42__ ___MAGNOLIA OLIVER MDDicta vicente: 7 1438Sig kenroy : 7 1442 THYROID STIMULATING HORMONE Observa Value Referen Units Interpr Notes Date tion ce etation Range THYROID < 0.02 0.46 - uIU/mL Low No Aug 09 4.68 inform2015 STIMULA tion in 3:02 PM TING source HORMONE data FREE T4 Observa Value Referen Units Interpr Notes Date tion ce etation Range FREE T4 1.25 0.78 - ng/dL Normal No Aug 09 2.19 inform2015 tion in 2:46 PM source data COMPREHENSIVE METABOLIC PANEL Observa Value Referen Units Interpr Notes Date ti ce etation Range GLUCOSE 82 70 - mg/dL Normal No Aug 09 100 inform2015 tion in 2:32 PM source data BLOOD 20 7 - 25 mg/dL Normal No Aug 09 UREA inform2015 NITROGE tion in 2:32 PM N source data CREATIN 0.70 0.50 - mg/dL Normal No Aug 09 INE 1.20 inform2015 tion in 2:32 PM source data GLOMERU > 60 >60 No Normal GFR is Aug 09 LAR inform only 2016 FILTRAT tion in calcula 2:32 PM ION source vicente for RATE data patient s over 18 years of age anddoes not allow for race. Units are mL/min/ 1.73 m2. BUN/CRE 29.0 10.0 - No High No Aug 09 ATININE 20.0 informa informa 2015 RATIO tion in tion in 2:32 PM source source data data SODIUM 141 137 - mmol/L Normal No Aug 09 145 2015 tion in 2:32 PM source data POTASSI 3.8 3.5 - mmol/L Normal No Aug 09 UM 5.1 inform2015 tion in 2:32 PM source data CHLORID 100 98 - mEq/L Normal No Aug 09 E 109 inform2015 tion in 2:32 PM source data CARBON 33.7 22.0 - mEq/L High No Aug 09 DIOXIDE 30.0 inform2015 tion in 2:32 PM source data CALCIUM 9.6 8.4 - mg/dL Normal No Aug 09 10.2 inform2015 tion in 2:32 PM source data TOTAL 6.5 6.3 - g/dL Normal Aug 09 PROTEIN 8.2 inform2015 tion in 2:32 PM source data ALBUMIN 3.8 3.5 - g/dL Normal No Aug 09 5.0 inform2015 tion in 2:32 PM source data BILIRUB 1.0 0.2 - mg/dL Normal No Aug 09 IN,TOTA 1.3 informa 2016 L tion in 2:32 PM source data ASPARTA 28 15 - 46 U/L Normal No Aug 09 TE informa 2016 AMINOTR tion in 2:32 PM ANSFERA source SE/AST data ALANINE 30 13 - 69 U/L Normal No Aug 092015 AMINOTR tion in 2:32 PM ANSFERA source SE/ALT data ALKALIN 72 38 - U/L Normal No Aug 09 E 126 2015 PHOSPHA tion in 2:32 PM TASE source data DIAGMAM Observa Value Referen Units Interpr Notes Date tion ce etation Range TEXT Vincenzo No No No No Aug 04 DIAGNOS informa informa informa informa 2016 IS McDowel tion in tion in tion in tion in 3:29 PM BATTERY l source source source source HealthE data data data data MRMCDep artment of Diagnos [id number] [place] [phone] Patient : Sex: Age: Unit Number: STEVE BERMUDEZ 61 [id number] 180[address] [facility] Physici an: Status: Date of : Account Number: WILLIS ROJAS MD REG CLI 953 [id number] ritika Lundberg an: Locatio n: Room Number: Date of Exam:LUCIA LYON EMAMM 6REASON FOR EXAM: ABNORMA L MAMMREA SON FOR VISIT: RUDDY DIAG ADD VIEWS, POSS RUDDY BREAST U/SACCE SSION # [id number] 1216-00 19 __ADDIT IONAL VIEWS BILATER AL BREAST AND LIMITED LEFT BREASTU LTRASOU NDINDIC ATION: Abnorma l screeni ng mammogr am 6In the upper outer right breast 11 cm from the nipple at the11:0 0 positio n patient had a cluster of microca lcifica tions.T hese appear to be slightl y pleomor phic.A second cluster of microca lcifica tions at the 1:00 to 2:00pos ition of the right breast at 7.5 cm from the nipple was notedas well. Patient returns for magnifi cation views of bothclu sters. These are slightl y pleomor phic and mildly suspici ous.Fur ther assessm ent with stereot actic biopsy is recomme nded. Thisis possibl y approac hable from the superio r aspect. Spot victoriano tereso of the central left breast in the CC viewrev eals dense and nodular fibrogl andular element s. The nodular density describ ed on the origina l mammogr am does not complet elydisp erse and therefo re further evaluat ion with left breastu ltrasou nd is recomme nded.LI MITED LEFT BREAST ULTRASO UND:Ult rasound of the left breast was perform ed initial ly by thedeysi celayalogtariq t and then again with myself in attenda nce. Despite extensi ve ultraso nograph ic interro gation, only normalf ibrogla ndular tissue is seen.IM PRESSIO N:Suspi cious (BIRADS categor y 4 A.).Pat ient has 2 cluster s of pleomor phic calcifi cation in the rightbr east which are mildly suspici ous. Stereot actic biopsy of bothloc ations is recomme nded. Surgica l consult ation for thester eotacti c biopsy is needed. The left breast nodule likely represe nts superim posedfi broglan dular tissue as no ultraso und abnorma lity is seen.Ex tremely dense breast tissue is noted on mammogr aphy.I have discuss ed these finding s with the patient who underst andsand agrees with the plan. Patient is to followu p with Dr. Merrill or zahraa WilsonSite 1 ____Ele ctronic ally signed by: DAVON Reynolds te: 6Time: 18:50__ ___ELIZABETH LOZANO MDDicta vicente: [phone] kenroy : 6 1850 BRUNLIMLT Observa Value Referen Units Interpr Notes Date tion ce etation Range TEXT [place] No No No No Aug 04 DIAGNOS informa informa informa informa 2016 IS McDowel tion in tion in tion in tion in 3:29 PM BATTERY l source source source source [facility] data data data data [facility] artment of Diagnos [id number] [place] [phone] Patient : Sex: Age: Unit Number: STEVE BERMUDEZ F 61 [id number] 180[address] ring Physici an: Status: Date of : Account Number: WILLIS ROJAS MD REG CLI 953 [id number] ritika Physici an: Locatio n: Room Number: Date of Exam:LUCIA LYON AN EMAMM 6REASON FOR EXAM: ABNORMA L MAMMREA SON FOR VISIT: RUDDY DIAG ADD VIEWS, POSS RUDDY BREAST U/SACCE SSION # [id number] 5 _ADDITI ONAL VIEWS BILATER AL BREAST AND LIMITED LEFT BREASTU LTRASOU NDINDIC ATION: Abnorma l screeni ng mammogr am 6In the upper outer right breast 11 cm from the nipple at the11:0 0 positio n patient had a cluster of microca lcifica tions.T hese appear to be slightl y pleomor phic.A second cluster of microca lcifica tions at the 1:00 to 2:00pos ition of the right breast at 7.5 cm from the nipple was notedas well. Patient returns for magnifi cation views of bothclu sters. These are slightl y pleomor phic and mildly suspici ous.Fur ther assessm ent with stereot actic biopsy is recomme nded. Thisis possibl y approac hable from the superio r aspect. Spot victoriano tereso of the central left breast in the CC viewrev eals dense and nodular fibrogl andular element s. The nodular density describ ed on the origina l mammogr am does not complet elydisp erse and therefo re further evaluat ion with left breastu ltrasou nd is recomme nded.LI MITED LEFT BREAST ULTRASO UND:Ult rasound of the left breast was perform ed initial ly by thedeysi nologis t and then again with myself in attenda nce. Despite extensi ve ultraso nograph ic interro gation, only normalf ibrogla ndular tissue is seen.IM PRESSIO N:Suspi cious (BIRADS categor y 4 A.).Pat ient has 2 cluster s of pleomor phic calcifi cation in the rightbr east which are mildly suspici ous. Stereot actic biopsy of bothloc ations is recomme nded. Surgica l consult ation for thester eotacti c biopsy is needed. The left breast nodule likely represe nts superim posedfi broglan dular tissue as no ultraso und abnorma lity is seen.Ex tremely dense breast tissue is noted on mammogr aphy.I have discuss ed these finding s with the patient who underst andsand agrees with the plan. Patient is to followu p with Dr. Merrill or zahraa WilsonSite 1 ____Ele ctronic ally signed by: DAVON Reynolds te: 6Time: 18:50__ ___ELIZABETH LOZANO MDDicta vicente: 6 [phone] kenroy : 6 1850 SCREENM Observa Value Referen Units Interpr Notes Date tion ce etation Range TEXT Vincenzo No No No No Jul 31 DIAGNOS informa informa informa informa 2016 IS McDowel tion in tion in tion in tion in 10:13 BATTERY l source source source source [facility] [id number] [place] [phone] Patient : Sex: Age: Unit Number: STEVE BERMUDEZ F 61 [id number] 180[place] ne Physici an: Status: Date of : Account Number: WILLIS ROJAS MD REG CLI 953 [id number] ritika Lundberg an: Locatio n: Room Number: Date of Exam:LUCIA LYON [facility] 6REASON FOR EXAM:RE ASON FOR VISIT: MIGUEL Z12.31A CCESSNAIN N # [id number] 1209-00 10 __SCRESonal [place] DIGITAL MAMMOGR APHY WITH TOMOSYN THESIS AND CAD 07/28/16 Compari son is to 5Modera tely dense fibrogl andular tissue is present in eachbre ast. This does limit the sensiti vity of mammogr aphy fordete ction of disease in this patient . In the upper outer rightbr east at the 11:00 positio n 11 cm from the nipple, patient hasa cluster of microca lcifica tions. Patient has at the 1 to 2:00pos ition of the right breast 7.5 cm from the nipple, a secondc luster of microca lcifica tions. These may be slightl ypleomo rphic but further charact erizati on with magnifi cationv iews of both cluster s in the CC and ML and true lateral positio ns is recomme nded.In additio n, patient has a 6 mm nodular density in themidp ortion of the left breast seen only on the CC view. Further evaluat ion with repeat left CC mammogr am with and without spotcom pressio n is needed. If underly ing mass is seen thenult rasound will be needed as well.Im pressio n:Incom plete Mammogr am: Needs additio nal Imaging Evaluat ion(BIR ADS categor y 0).Yary ent will be recalle d for bilater al breast additio nal viewsas discuss ed above.S ite 1 ____Ele ctronic ally signed by: DAVON Reynolds te: 6Time: 10:49__ ___ELIZABETH LOZANO MDDicta vicente: 6 [phone] kenroy : 6 1049 PTCXR Observa Value Referen Units Interpr Notes Date tion ce etation Range TEXT Vincenzo No No No No Jun 19 DIAGNOS informa informa informa informa 2016 IS Rose tion in tion in tion in tion in 6:57 AM BATTERY l source source source source HealthE data data data data MRMCDep artment of Diagnos [id number] [facility] [place] [phone] Patient : Sex: Age: Unit Number: STEVE BERMUDEZ F 61 [id number] 180[place] ne Physici an: Status: Date of : Account Number: TRIAGE, TRIAGE X MD PRE ER 953 [id number] ritika Physici an: Locatio n: Room Number: Date of Exam:LUCIA LYON EE 6REASON FOR EXAM: PALPITA TIONS/C HEST PAINREA SON FOR VISIT: Geri OCASIO SSION # [id number] 1031-00 18 __Chest , single view.In dicatio n: Palpita tions. Chest pain.Co mpariso n: 014.Fin dings: There is mild left basilar opacity . The cardiac andmedi astinal contour s are within normal limits. There are nopleur al effusio ns or edema. There is no pneumot horax. Therear e no acute bony abnorma lities. Impress ion:Mil d left basilar opacity which could be due to atelect asis orpneum onia.Si te 1 ____Ele ctronic ally signed by: MAGNOLIA Tomas ALDRICH ate: 6Time: 06:58__ ___MAGNOLIA OLIVER MDDicta vicente: [phone] kenroy : 6 0658 CK-MB (INITIAL) Observa Value Referen Units Interpr Notes Date tion ce etation Range CK-MB 1.48 <=2.37 ng/mL Normal No Jun 19 (INITIA informa 2015 L) tion in 7:25 AM source data TROPONIN I (INITIAL) Observa Value Referen Units Interpr Notes Date tion ce etation Range TROPONI < 0.010 <=0.034 ng/mL Normal <= Jun 19 N I 0.034 2015 (INITIA ( 7:25 AM L) PERCENT ILE OF NORMAL POPULAT ION)>= 0.120 (AMI CUTOFF) ALL RESULTS MUST BE CORRELA VICENTE WITH CLINICA L FINDING S MYOGLOBIN Observa Value Referen Units Interpr Notes Date tion ce etation Range MYOGLOB 43.1 <61.5 ng/mL Normal No Jun 19 IN 2015 tion in 7:25 AM source data COMPREHENSIVE METABOLIC PANEL Observa Value Referen Units Interpr Notes Date tion ce etation Range GLUCOSE 91 70 - mg/dL Normal No Jun 19 100 inform2015 tion in 7:13 AM source data BLOOD 20 7 - 25 mg/dL Normal No Jun 19 UREA 2015 NITROGE tion in 7:13 AM N source data CREATIN 0.77 0.50 - mg/dL Normal No Jun 19 INE 1.20 inform2015 tion in 7:13 AM source data GLOMERU > 60 >60 No Normal GFR is Jun 19 LAR informa only 2016 FILTRAT tion in calcula 7:13 AM ION source vicente for RATE data patient s over 18 years of age anddoes not allow for race. Units are mL/min/ 1.73 m2. BUN/CRE 26.0 10.0 - No High No Jun 19 ATININE 20.0 informa informa 2016 RATIO tion in tion in 7:13 AM source source data data SODIUM 141 137 - mmol/L Normal No Jun 19 145 inform2015 tion in 7:13 AM source data POTASSI 3.3 3.5 - mmol/L Low No Jun 19 UM 5.1 inform 2016 tion in 7:13 AM source data CHLORID 104 98 - mEq/L Normal No Jun 19 E 109 inform2015 tion in 7:13 AM source data CARBON 26.1 22.0 - mEq/L Normal No Jun 19 DIOXIDE 30.0 informa 2015 tion in 7:13 AM source data ANION 10.9 No No Normal No Jun 19 GAP informa informa informa 2016 tion in tion in tion in 7:13 AM source source source data data data CALCIUM 9.2 8.4 - mg/dL Normal No Jun 19 10.2 inform2015 tion in 7:13 AM source data TOTAL 7.1 6.3 - g/dL Normal No Jun 19 PROTEIN 8.2 informa 2015 tion in 7:13 AM source data ALBUMIN 4.5 3.5 - g/dL Normal No Jun 19 5.0 inform2015 tion in 7:13 AM source data BILIRUB 0.7 0.2 - mg/dL Normal No Jun 19 IN,TOTA 1.3 informa 2015 L tion in 7:13 AM source data ASPARTA 28 15 - 46 U/L Normal No Jun 19 TE inform 2016 AMINOTR tion in 7:13 AM ANSFERA source SE/AST data ALANINE 51 13 - 69 U/L Normal No Jun 19 informa 2016 AMINOTR tion in 7:13 AM ANSFERA source SE/ALT data ALKALIN 77 38 - U/L Normal No Jun 19 E 126 inform 2016 PHOSPHA tion in 7:13 AM TASE source data CREATINE KINASE Observa Value Referen Units Interpr Notes Date tion ce etation Range CREATIN 74 30 - U/L Normal No Jun 19 E 135 informa 2016 KINASE tion in 7:13 AM source data CBC WITH AUTO DIFFERENTIAL Observa Value Referen Units Interpr Notes Date tion ce etation Range WHITE 6.64 4.00 - THOU/uL Normal No Jun 19 BLOOD 11.00 informa 2015 COUNT tion in 7:00 AM source data RED 5.14 4.20 - MILL/uL Normal No Oct 31 BLOOD 5.40 informa 2016 COUNT tion in 7:00 AM source data HEMOGLO 14.9 12.0 - g/dL Normal No May 31 BIN 16.0 informa 2016 tion in 7:00 AM source data HEMATOC 44.5 38.0 - % Normal No May 31 RIT 47.0 informa 2016 tion in 7:00 AM source data MEAN 86.6 82.0 - fL Normal No Jun 19 CORPUSC 100.0 informa 2016 ULAR tion in 7:00 AM VOLUME source data MEAN 29.0 26.0 - pg Normal No Jun 19 CORPUSC 33.0 informa 2016 ULAR tion in 7:00 AM HEMOGLO source BIN data MEAN 33.5 31.0 - g/dL Normal No Jun 19 CORPUSC 36.0 informa 2016 ULAR tion in 7:00 AM HGB source CONC data RED 13.5 11.5 - % Normal No Jun 19 CELL 14.5 informa 2016 DISTRIB tion in 7:00 AM UTION source WIDTH data PLATELE 235 150 - THOU/uL Normal No Jun 19 T COUNT 375 informa 2015 tion in 7:00 AM source data MEAN 9.0 8.6 - fL Normal No Jun 19 PLATELE 11.7 informa 2015 T tion in 7:00 AM VOLUME source data IMM < 3 <3 % Normal No Jun 19 GRANULO informa 2016 CYTE % tion in 7:00 AM source data NEUTROP 50.2 No % Normal No May 31 HILS % informa informa 2016 tion in tion in 7:00 AM source source data data LYMPH % 32.5 No % Normal No Jun 19 informa informa 2016 tion in tion in 7:00 AM source source data data MONO % 12.2 No % Normal No Jun 19 informa informa 2016 tion in tion in 7:00 AM source source data data EOS % 4.2 No % Normal No May 31 informa informa 2016 tion in tion in 7:00 AM source source data data BASO % 0.6 No % Normal No May 31 informa informa 2016 tion in tion in 7:00 AM source source data data NEUTROP 3.33 1.50 - THOU/uL Normal No May 31 HIL, 7.00 informa 2016 ABSOLUT tion in 7:00 AM E source data LYMPH, 2.16 1.00 - THOU/uL Normal No Jun 19 ABSOLUT 4.00 informa 2015 E tion in 7:00 AM source data MONO, 0.81 0.00 - THOU/uL Normal No Jun 19 ABSOLUT 1.00 inform2015 E tion in 7:00 AM source data EOS, 0.28 0.00 - THOU/uL Normal No Jun 19 ABSOLUT 0.40 informa 2015 E tion in 7:00 AM source data BASO, 0.04 0.00 - THOU/uL Normal No Jun 19 ABSOLUT 0.20 informa 2015 E tion in 7:00 AM source data THYROID STIMULATING HORMONE Observa Value Referen Units Interpr Notes Date tion ce etation Range THYROID 0.41 0.46 - uIU/mL Low No Jun 19 4.68 informa 2015 STIMULA tion in 8:01 AM TING source HORMONE data PHOSPHORUS Observa Value Referen Units Interpr Notes Date tion ce etation Range PHOSPHO 3.6 2.5 - mg/dL Normal No Jun 19 BARRIE 4.5 informa 2015 tion in 7:30 AM source data MAGNESIUM Observa Value Referen Units Interpr Notes Date tion ce etation Range MAGNESI 2.1 1.3 - mEq/L High No Jun 19 UM 1.9 informa 2015 tion in 7:30 AM source data [id number] Observa Value Referen Units Interpr Notes Date tion ce etation Range TEXT Vincenzo No No No No May 15 DIAGNOS informa informa informa inform2015 IS McDowel tion in tion in tion in tion in 1:18 PM BATTERY l source source source source HealthE data data data data MRMCDep artment of Diagnos [id number] [place] [phone] Patient : Sex: Age: Unit Number: STEVE BERMUDEZ 61 [id number] 180[place] Physici an: Status: Date of : Account Number: QUINTEN GONZALEZ PA-C REG CLI 953 [id number] ritika Physici an: Locatio n: Room Number: Date of Exam:LUCIA LYON [facility] 6REASON FOR EXAM: LBPREAS ON FOR VISIT: LOW BACK PAINACC ESSION # [id number] 0926-00 41 __Three views lumbar spine.I ndicati on: Pain.Co mpariso n: MRI from the same day.Fin dings:T here are no acute fractur es or malalig nments. There ismild/ moderat e multile aris degener ative disk disease and facetar thropat hy. Visuali zed soft tissues are unremar kable.I mpressi on:Mild to moderat e multile aris degener ative disk disease and facetar thropat hy without acute bony abnorma lity.Si te 1 ____Ele ctronic ally signed by: MAGNOLIA ALDRICH ate: 6Time: 13:19__ ___MAGNOLIA OLIVER MDDicta vicente: 6 [phone] kenroy : 6 1319 LSWO Observa Value Referen Units Interpr Notes Date tion ce etation Range TEXT [place] No No No No May 15 DIAGNOS informa informa informa informa 2016 IS McDowel tion in tion in tion in tion in 1:13 PM BATTERY l source source source source HealthE data data data data MRMCDep artment of Diagnos [id number] [place] [phone] Patient : Sex: Age: Unit Number: STEVE BERMUDEZ F 61 [id number] 180[place] Physici an: Status: Date of : Account Number: QUINTEN GONZALEZ PA-C REG CLI 953 [id number] ritika Physici an: Locatio n: Room Number: Date of Exam:LUCIA LYON EMRI 6REASON FOR EXAM: LOW BACK PAINREA SON FOR VISIT: LOW BACK PAINACC ESSION # [id number] 0926-00 16 __MRI LUMBAR SPINE WITHOUT IV GADOLIN IUMIndi cation: Low back pain after fall one year agoMult iplanar /Multip ulse sequenc e imaging of the lumbar spine wasperf ormed without IV gadolin ium on the 1.5Tesl a unit.2 mm retroli sthesis of L2 on 3 and L1 on 2 is seen. Degener ativeen dplate changes are noted at these levels as well. Loss of dischei ght and signal is seen from T11-S1. The conus is of normals ignal and girth and termina freddy at L1.At L5/S1, facet arthrit is and a broad-b ased disc bulge arepres ent. Degener ative endplat e changes are present . Moderat ebilate ral neural foramin al narrowi ng is seen. No signifi cantcen tral stenosi s is noted.A t L4/5, facet arthrit is and a broad-b ased disc bulge cause mildcen tral stenosi s and moderat e to severe neural foramin alnarro wing bilater ally. High signal is seen in posteri or annulus suggest ing focal annular tear.At L3/4, facet arthrit is and a broad-b ased disc bulge arepres ent. Mild central stenosi s and mild neural foramin alnarro wing is seen bilater ally.At L2/3, grade 1 retroli sthesis is noted. Disc bulging isprese nt along with facet arthrit is. Mild to moderat e central stenosi s and mild left and moderat e right neural foramin alnarro wing is noted.A t L1/2, facet arthrit is and a broad-b ased disc bulge arepres ent. Mild central stenosi s and moderat e left neuralf oramina l narrowi ng is seen. Again, grade 1 retroli sthesis isprese nt at this level as well.Im pressio n:Multi level degener ative disc and degener ative joint disease isseen as describ ed above.S ite 2 ____Ele ctronic ally signed by: DAVON Reynolds te: 6Time: 14:27__ ___ELIZABETH LOZANO MDDicta vicente: [phone] kenroy : 6 1427 THYROID STIMULATING HORMONE Observa Value Referen Units Interpr Notes Date tion ce etation Range THYROID 0.14 0.46 - uIU/mL Low No Feb 15 4.68 informa 2016 STIMULA tion in 10:17 TING source PM HORMONE data SLIDE REVIEW Observa Value Referen Units Interpr Notes Date tion ce etation Range NEUTROP 50 No % Normal No Nov 15 HILS informa informa 2015 tion in tion in 2:04 PM source source data data LYMPHOC 36 No % Normal No Nov 15 YTE informa informa 2016 tion in tion in 2:04 PM source source data data MONOCYT 14 No % Normal No Nov 15 E informa informa 2016 tion in tion in 2:04 PM source source data data PLATELE APPEAR No No Normal No Nov 15 T ADEQUAT informa informa informa 2016 ESTIMAT E tion in tion in tion in 2:04 PM E source source source data data data RBC SEE No No Normal No Nov 15 MORPHOL BELOW informa informa informa 2016 OGY tion in tion in tion in 2:04 PM source source source data data data ANISOCY SLIGHT No No Normal No Nov 15 TOSIS informa informa informa 2016 tion in tion in tion in 2:04 PM source source source data data data VITAMIN B12 Observa Value Referen Units Interpr Notes Date tion ce etation Range VITAMIN 344 239 - pg/mL Normal No Nov 15 B12 931 informa 2016 tion in 1:21 PM source data Is the Y No No No No Nov 15 Patient informa informa informa informa 2016 tion in tion in tion in tion in 10:10 Fasting source source source source AM data data data data THYROID STIMULATING HORMONE Observa Value Referen Units Interpr Notes Date tion ce etation Range THYROID 0.07 0.46 - uIU/mL Low No Nov 15 4.68 informa 2016 STIMULA tion in 1:03 PM TING source HORMONE data Is the Y No No No No Nov 15 Patient informa informa informa informa 2016 tion in tion in tion in tion in 10:10 Fasting source source source source AM data data data data COMPREHENSIVE METABOLIC PANEL Observa Value Referen Units Interpr Notes Date tion ce etation Range GLUCOSE 91 70 - mg/dL Normal No Nov 15 100 informa 2015 tion in 12:36 source PM data BLOOD 19 7 - 25 mg/dL Normal No Nov 15 UREA informa 2016 NITROGE tion in 12:36 N source PM data CREATIN 0.68 0.70 - mg/dL Low No Nov 15 INE 1.50 informa 2015 tion in 12:36 source PM data GLOMERU > 60 >60 No Normal GFR is Nov 15 LAR informa only 2016 FILTRAT tion in calcula 12:36 ION source vicente for PM RATE data patient s over 18 years of age anddoes not allow for race. Units are mL/min/ 1.73 m2. BUN/CRE 28.0 10.0 - No High No Nov 15 ATININE 20.0 informa informa 2016 RATIO tion in tion in 12:36 source source PM data data SODIUM 144 137 - mmol/L Normal No Nov 15 145 informa 2016 tion in 12:36 source PM data POTASSI 3.6 3.5 - mmol/L Normal No Nov 15 UM 5.1 informa 2016 tion in 12:36 source PM data CHLORID 103 98 - mEq/L Normal No Nov 15 E 109 informa 2016 tion in 12:36 source PM data CARBON 29.3 22.0 - mEq/L Normal No Nov 15 DIOXIDE 30.0 informa 2015 tion in 12:36 source PM data CALCIUM 9.6 8.4 - mg/dL Normal No Nov 15 10.2 informa 2016 tion in 12:36 source PM data TOTAL 7.0 6.3 - g/dL Normal No Nov 15 PROTEIN 8.2 informa 2015 tion in 12:36 source PM data ALBUMIN 4.5 3.5 - g/dL Normal No Nov 15 5.0 informa 2015 tion in 12:36 source PM data BILIRUB 0.9 0.2 - mg/dL Normal No Nov 15 IN,TOTA 1.3 informa 2015 L tion in 12:36 source PM data ASPARTA 34 15 - 46 U/L Normal No Nov 15 TE informa 2016 AMINOTR tion in 12:36 ANSFERA source PM SE/AST data ALANINE 39 13 - 69 U/L Normal No Nov 15 inform 2016 AMINOTR tion in 12:36 ANSFERA source PM SE/ALT data ALKALIN 58 38 - U/L Normal No Nov 15 E 126 informa 2016 PHOSPHA tion in 12:36 TASE source PM data LIPID PROFILE Observa Value Referen Units Interpr Notes Date tion ce etation Range CHOLEST 160 115 - mg/dL Normal No Nov 15 OTTO 200 informa 2015 tion in 12:36 source PM data TRIGLYC 93 <150 mg/dL Normal No Nov 15 ERIDES informa 2015 tion in 12:36 source PM data HDL 65 >39 mg/dL Normal No Nov 15 CHOLEST informa 2016 OTTO tion in 12:36 source PM data LDL 76 <100 mg/dL Normal No Nov 15 CHOLEST informa 2016 OTTO tion in 12:36 source PM data VLDL 19 No mg/dL Normal No Nov 15 CHOLEST informa informa 2016 OTTO tion in tion in 12:36 source source PM data data NON-HDL 95 No mg/dL Normal Non-HDL Nov 15 informa goal 2016 CHOLEST tion in is 12:36 OTTO source equival PM data ent to the LDL goal plus 30. CHOLEST 2.5 No No Normal No Nov 15 OTTO/HD informa informa informa 2016 L RATIO tion in tion in tion in 12:36 source source source PM data data data Is the Y No No No No Oct 29 Patient informa informa informa informa 2016 tion in tion in tion in tion in 10:10 Fasting source source source source AM data data data data CBC WITH AUTO DIFFERENTIAL Observa Value Referen Units Interpr Notes Date tion ce etation Range WHITE 5.2 4.4 - K/uL Normal No Nov 15 BLOOD 10.8 informa 2016 COUNT tion in 10:48 source AM data RED 5.20 3.70 - M/uL Normal No Nov 15 BLOOD 5.60 informa 2015 COUNT tion in 10:48 source AM data HEMOGLO 15.3 11.0 - g/dL High No Nov 15 BIN 15.0 informa 2016 tion in 10:48 source AM data HEMATOC 45.3 34.0 - % Normal No Nov 15 RIT 46.0 informa 2016 tion in 10:48 source AM data MEAN 87 81 - 99 fL Normal No Nov 15 CORPUSC informa 2015 ULAR tion in 10:48 VOLUME source AM data MEAN 29.4 26.0 - pg Normal No Nov 15 CORPUSC 32.0 informa 2015 ULAR tion in 10:48 HEMOGLO source AM BIN data MEAN 33.8 31.0 - g/dL Normal No Nov 15 CORPUSC 36.0 informa 2016 ULAR tion in 10:48 HGB source AM CONC data PLATELE 260 150 - K/uL Normal No Nov 15 T COUNT 400 informa 2015 tion in 10:48 source AM data AUTOMAT 27.4 11.0 - % Normal No Nov 15 ED 45.0 informa 2016 LYMPH % tion in 10:48 source AM data AUTOMAT 16.2 1.0 - % High No Nov 15 ED 15.0 informa 2016 MIXED tion in 10:48 WBC % source AM data AUTOMAT 56.4 46.0 - % Normal No Nov 15 ED 72.0 informa 2016 NEUTROP tion in 10:48 HILS % source AM data SCREENM Observa Value Referen Units Interpr Notes Date tion ce etation Range TEXT Vincenzo No No No No Jun 16 DIAGNOS informa informa informa informa 2014 IS McDowel tion in tion in tion in tion in 12:45 BATTERY l source source source source HealthE data data data data MRMCDep artment of Diagnos tpiy405 [facility] [place] [phone] Patient : Sex: Age: Unit Number: STEVE BERMUDEZ F 60 [id number] 180Orde ne Physici an: Status: Date of : Account Number: WILLIS ROJAS MD REG CLI 953 [id number] ritika Physicmarialuisa an: Locatio n: Room Number: Date of Exam:LUCIA LYON [facility] 5REASON FOR EXAM: SCREENI KAILYN N FOR VISIT: Z12.31/ SCREENI HILDA TERESO # [id number] 1027-00 02 __Scree farrah Digital mammogr aphy with Tomosyn thesis and CAD 5Compar danica is to 4, 11/20/12, 08/25/10N o evidenc e of suspici ous mass, microca lcifica tions orarchi tectura l distort ion is seen in either breast to suggest neoplas ia. Extreme ly dense breast parench yma is noted. Thislim its the sensiti vity of the examina tion.IM PRESSIO N:Negat lyndsey (BIRADS categor y 1).Foll ow-up with screeni ng mammogr aphy in one year is recomme nded.Orly Nevarez.Site 1 ____Ele ctronic ally signed by: DAVON Reynolds te: 5Time: 12:50__ ___ELIZABETH LOZANO MDDicta vicente: 5 1245Sig kenroy : 5 1251 THYROID STIMULATING HORMONE Observa Value Referen Units Interpr Notes Date tion ce etation Range THYROID 1.34 0.46 - uIU/mL Normal No Jun 20 4.68 informa 2013 STIMULA tion in 4:22 AM TING source HORMONE data CK-MB (INITIAL) Observa Value Referen Units Interpr Notes Date tion ce etation Range CK-MB 1.63 <=2.37 ng/mL Normal No Jun 20 (INITIA informa 2013 L) tion in 2:59 AM source data TROPONIN I (INITIAL) Observa Value Referen Units Interpr Notes Date tion ce etation Range TROPONI 0.014 <=0.034 ng/mL Normal <= Jun 20 N I 0.034 2013 (INITIA ( 2:59 AM L) PERCENT ILE OF NORMAL POPULAT ION)>= 0.120 (AMI CUTOFF) ALL RESULTS MUST BE CORRELA VICENTE WITH CLINICA L FINDING S COMPREHENSIVE METABOLIC PANEL Observa Value Referen Units Interpr Notes Date tion ce etation Range GLUCOSE 139 70 - mg/dL High No Jun 20 100 informa 2013 tion in 2:48 AM source data BLOOD 24 7 - 25 mg/dL Normal No Jun 20 UREA informa 2013 NITROGE tion in 2:48 AM N source data CREATIN 0.68 0.70 - mg/dL Low No Jun 20 INE 1.30 informa 2013 tion in 2:48 AM source data GLOMERU > 60 >60 No Normal GFR is Nov LAR informa only 2014 FILTRAT tion in calcula 2:48 AM ION source vicente for RATE data patient s over 18 years of age anddoes not allow for race. Units are mL/min/ 1.73 m2. BUN/CRE 35.3 10.0 - No High No Nov 1 ATININE 20.0 informa informa 2013 RATIO tion in tion in 2:48 AM source source data data SODIUM 142 137 - mEq/L Normal No Nov 1 145 informa 2013 tion in 2:48 AM source data POTASSI 3.1 3.5 - mEq/L Low No Nov 1 UM 5.1 informa 2013 tion in 2:48 AM source data CHLORID 104 98 - mEq/L Normal No Nov 1 E 109 informa 2013 tion in 2:48 AM source data CARBON 23.0 22.0 - mEq/L Normal No Nov DIOXIDE 30.0 informa 2013 tion in 2:48 AM source data CALCIUM 9.0 8.4 - mg/dL Normal No Nov 1 10.5 informa 2013 tion in 2:48 AM source data TOTAL 6.7 6.3 - g/dL Normal No Nov PROTEIN 8.2 informa 2013 tion in 2:48 AM source data ALBUMIN 3.7 3.5 - g/dL Normal No Jun 20 5.0 informa 2013 tion in 2:48 AM source data BILIRUB 0.5 0.2 - mg/dL Normal No Jun 1 IN,TOTA 1.3 informa 2013 L tion in 2:48 AM source data ASPARTA 33 15 - 46 U/L Normal No Nov 1 TE informa 2013 AMINOTR tion in 2:48 AM ANSFERA source SE/AST data ALANINE 31 13 - 69 U/L Normal No Nov 1 informa 2013 AMINOTR tion in 2:48 AM ANSFERA source SE/ALT data ALKALIN 69 38 - U/L Normal No Jun 1 E 126 informa 2013 PHOSPHA tion in 2:48 AM TASE source data MAGNESIUM Observa Value Referen Units Interpr Notes Date tion ce etation Range MAGNESI 1.6 1.3 - mEq/L Normal No Nov 1 UM 1.9 informa 2013 tion in 2:48 AM source data CREATINE KINASE Observa Value Referen Units Interpr Notes Date tion ce etation Range CREATIN 88 30 - U/L Normal No Nov 1 E 135 informa 2013 KINASE tion in 2:48 AM source data CBC WITH AUTO DIFFERENTIAL Observa Value Referen Units Interpr Notes Date tion ce etation Range WHITE 7.62 4.00 - THOU/uL Normal No Nov 1 BLOOD 11.00 informa 2013 COUNT tion in 2:15 AM source data RED 5.03 4.20 - MILL/uL Normal No Nov 1 BLOOD 5.40 informa 2013 COUNT tion in 2:15 AM source data HEMOGLO 14.3 12.0 - g/dL Normal No Nov 1 BIN 16.0 informa 2013 tion in 2:15 AM source data HEMATOC 42.9 38.0 - % Normal No Nov 1 RIT 47.0 informa 2013 tion in 2:15 AM source data MEAN 85.3 82.0 - fL Normal No Nov 1 CORPUSC 100.0 informa 2013 ULAR tion in 2:15 AM VOLUME source data MEAN 28.4 26.0 - pg Normal No Nov 1 CORPUSC 33.0 informa 2013 ULAR tion in 2:15 AM HEMOGLO source BIN data MEAN 33.3 31.0 - g/dL Normal No Nov 1 CORPUSC 36.0 informa 2013 ULAR tion in 2:15 AM HGB source CONC data RED 14.2 11.5 - % Normal No Nov 1 CELL 14.5 informa 2013 DISTRIB tion in 2:15 AM UTION source WIDTH data PLATELE 242 150 - THOU/uL Normal No Nov 1 T COUNT 375 informa 2013 tion in 2:15 AM source data MEAN 8.8 8.6 - fL Normal No Nov 1 PLATELE 11.7 informa 2013 T tion in 2:15 AM VOLUME source data IMM < 3 <3 % Normal No Nov 1 GRANULO informa 2013 CYTE % tion in 2:15 AM source data NEUTROP 56.7 No % Normal No Nov 1 HILS % informa informa 2013 tion in tion in 2:15 AM source source data data MAMSCRD Observa Value Referen Units Interpr Notes Date tion ce etation Range TEXT [place] No No No No Mar 31 DIAGNOS informa informa informa informa 2013 IS McDowel tion in tion in tion in tion in 10:55 BATTERY l source source source source AM HealthE data data data data MRMCDep artment of Diagnos [address] [place] [phone] Patient : Sex: Age: Unit Number: STEVE BERMUDEZ F 59 [id number] 180Orde ring Physici an: Status: Date of : Account Number: WILLIS ROJAS MD REG CLI 953 [id number] ritika Physici an: Locatio n: Room Number: Date of Exam:CHALINO LYON MD [facility] 4REASON FOR EXAM:RE ASON FOR VISIT: V7.12 SCREENI NGACCES TERESO # [id number] 0811-00 14 __Scree farrah digital mammogr am with CADINDI CATION: Screeni ng mammogr am. Patient reports mother with benji y of breast cancerC OMPARIS ON: 013, 012, 011, 009, TECHNIQ UE: Bilater al digital MLO, CC views with CAD.ANTOINETTE DINGS:T he breast parench yma is heterog eneousl y dense which limits thesens itivity and specifi city of mammogr aphy. There are nomasse s, suspici ous calcifi cations or areas of archite cturald istorti on.Impr ession: ACR Bi-Rads Categor y 1 - Negativ e finding s.Lette r A.RECOM MENDATI ON: Yearly screeni ng mammogr am.LAINE MEDEIROS FINAL REPORTI NG CATEGOR IES:0 - Assessm ent is incompl ete; needs additio nal imaging 1 - Negativ e2 - Benign finding s3 - Probabl y benign; short interva l follow- up indicat ed4 - Suspici ous abnorma lity; biopsy should be conside red5 - Highly suspici ous of maligna ncy; appropr iate action to [facility] Site 1 ____Ele ctrroldan floyd signed by: YOSSI Herrera te: 4Time: 10:58__ ___SAVANNA DOVE MDDicta vicente: 4 1055Sig kenroy : 4 1102 D-DIMER, QUANTITATIVE Observa Value Referen Units Interpr Notes Date tion ce etation Range D-DIMER 510 <500 ng/mL High THE Mar 02 CLINIC2013 QUANTIT L 9:21 PM ATIVE CUTOFF FOR EXCLUSI ON OF DVT AND PE IS 500 ng/mLFE U. ANTITHROMBIN ANTIGEN Observa Value Referen Units Interpr Notes Date ti ce etation Range ANTITHR 85 75 - % Normal Perform December 26 OMBIN 130 ed at: 2013 ANTIGEN BN - 6:13 AM [facility] [address] [id number]Lab Directo r: Joey Ferro MD, Phone: [phone] ANTITHROMBIN III ACTIVITY Observa Value Referen Units Interpr Notes ti ce etation Range ANTITHR 102 75 - % Normal No December 26 OMBIN 135 informa 2013 III tion in 6:13 AM ACTIVIT source Y data LUPUS ANTICOAGULANT PROFILE Observa Value Referen Units Interpr Notes Date ti ce etation Range DILUTE 73.7 0.0 - sec Abnorma No December 26 PROTHRO 55.0 l informa 2013 MBINN tion in 6:13 AM TIME(dP source T) data dPT 0.96 0.00 - Ratio Normal No December 26 CONFIRM 1.20 informa 2013 RATIO tion in 6:13 AM source data THROMBI 17.3 0.0 - sec Normal No December 26 N TIME 20.0 informa 2013 tion in 6:13 AM source data PTT-LA 45.4 0.0 - sec Normal No December 26 50.0 informa 2013 tion in 6:13 AM source data dRVVT 65.1 0.0 - sec Abnorma No December 26 55.1 l informa 2013 tion in 6:13 AM source data dRVVT 55.4 0.0 - sec Abnorma No December 26 MIX 45.4 l informa 2013 tion in 6:13 AM source data dRVVT 0.9 0.0 - ratio Normal No December 26 CONFIRM 1.4 informa 2013 tion in 6:13 AM source data INTERPR Comment . No Normal The dPT December 26 ETATION : informa is 2013 tion in markedl 6:13 AM source y data extende d, as can be seen in patient koko ing oral anticoa gulant therapy (OAT). In general , OAT canredu ce the accurac y of lupus anticoa gulant testing and results obtaine d for patient s yessenia ng OAT should be interpr eted withcau tion. No lupus anticoa gulant was detecte d. PTT-LA and dRVVTre sults are consist ent with specifi c inhibit ors to one or morecom mon pathway factors (X, V, II or fibrino gen). The dPT wasexte nded but the dPT confirm atory ratio was normal. This isconsi stent with a deficie ncy or specifi c inhibit ion of one or moreext rinsic pathway factors (VII, X, V, II or fibrino gen). ANTICARDIOLIPIN AB, IGA/G/M Observa Value Referen Units Interpr Notes Date tion ce etation Range ANTICAR <9 0 - 14 GPL_U/m Normal Negativ December 24 DIOLIPI L e: 2013 N AB 5:07 PM IGG <15Inde termina te: 15 - 20Low-M ed Positiv e: >20 - 80High Positiv e: >80 ANTICAR 10 0 - 12 MPL_U/m Normal Negativ December 24 DIOLIPI L e: 2013 N AB 5:07 PM IGM <13Inde termina te: 13 - 20Low-M ed Positiv e: >20 - 80High Positiv e: >80 ANTICAR <9 0 - 11 APL_U/m Normal Negativ December 24 DIOLIPI L e: 2013 N AB 5:07 PM IGA <12Inde termina te: 12 - 20Low-M ed Positiv e: >20 - 80High Positiv e: >80Perf ormed at: CB - [facility] [place] [address] [address] [facility], [place], [place] [address]Lab Directo r: Darryl Alexis MD, Phone: [phone] D-DIMER, QUANTITATIVE Observa Value Referen Units Interpr Notes Date tion ce etation Range D-DIMER 785 <500 ng/mL High THE December 222013 QUANTIT L 7:31 PM ATIVE CUTOFF FOR EXCLUSI ON OF DVT AND PE IS 500 ng/mLFE U. BASIC METABOLIC PANEL Observa Value Referen Units Interpr Notes Date tion ce etation Range Has Specimen Been Collected/Obtained? Y GLUCOSE 88 70 - mg/dL Normal No Dec 03 100 informa 2013 tion in 8:54 AM source data BLOOD 17 7 - 25 mg/dL Normal No Dec 03 UREA informa 2013 NITROGE tion in 8:54 AM N source data CREATIN 0.86 0.70 - mg/dL Normal No Dec 03 INE 1.30 inform2013 tion in 8:54 AM source data GLOMERU > 60 >60 No Normal GFR is Dec 03 LAR informa only 2013 FILTRAT tion in calcula 9:01 AM ION source vicente for RATE data patient s over 18 years of age anddoes not allow for race. Units are mL/min/ 1.73 m2. BUN/CRE 19.8 10.0 - No Normal No Dec 03 ATININE 20.0 informa inform2013 RATIO tion in tion in 8:54 AM source source data data SODIUM 139 137 - mEq/L Normal No Dec 03 145 inform2013 tion in 8:54 AM source data POTASSI 3.8 3.5 - mEq/L Normal No Dec 03 UM 5.1 inform2013 tion in 8:54 AM source data CHLORID 107 98 - mEq/L Normal No Dec 03 E 109 informa 2013 tion in 8:54 AM source data CARBON 25.0 22.0 - mEq/L Normal No Dec 03 DIOXIDE 30.0 informa 2013 tion in 8:54 AM source data CALCIUM 9.4 8.4 - mg/dL Normal No Dec 03 10.5 informa 2013 tion in 8:54 AM source data CBC WITH AUTO DIFFERENTIAL Observa Value Referen Units Interpr Notes Date tion ce etation Range Has Specimen Been Collected/Obtained? Y WHITE 5.72 4.00 - THOU/uL Normal No Apr 16 BLOOD 11.00 informa 2013 COUNT tion in 8:31 AM source data RED 5.06 4.20 - MILL/uL Normal No Nov 16 BLOOD 5.40 informa 2013 COUNT tion in 8:31 AM source data HEMOGLO 13.6 12.0 - g/dL Normal No Apr 16 BIN 16.0 informa 2013 tion in 8:31 AM source data HEMATOC 41.6 38.0 - % Normal No Apr 16 RIT 47.0 informa 2013 tion in 8:31 AM source data MEAN 82.2 82.0 - fL Normal No Nov 16 CORPUSC 100.0 informa 2013 ULAR tion in 8:31 AM VOLUME source data MEAN 26.9 26.0 - pg Normal No Nov 16 CORPUSC 33.0 informa 2013 ULAR tion in 8:31 AM HEMOGLO source BIN data MEAN 32.7 31.0 - g/dL Normal No Nov 16 CORPUSC 36.0 informa 2013 ULAR tion in 8:31 AM HGB source CONC data RED 15.7 11.5 - % High No Nov 16 CELL 14.5 informa 2013 DISTRIB tion in 8:31 AM UTION source WIDTH data PLATELE 235 150 - THOU/uL Normal No Nov 16 T COUNT 375 informa 2013 tion in 8:31 AM source data MEAN 9.6 8.6 - fL Normal No Nov 16 PLATELE 11.7 informa 2013 T tion in 8:31 AM VOLUME source data IMM < 3 <3 % Normal No Apr 16 GRANULO informa 2013 CYTE % tion in 8:31 AM source data NEUTROP 46.7 No % Normal No Apr 16 HILS % informa informa 2013 tion in tion in 8:31 AM source source data data LYMPH % 36.0 No % Normal No Apr 16 informa informa 2013 tion in tion in 8:31 AM source source data data MONO % 11.4 No % Normal No Apr 16 informa informa 2014 tion in tion in 8:31 AM source source data data EOS % 4.9 No % Normal No Apr 16 informa informa 2014 tion in tion in 8:31 AM source source data data BASO % 0.7 No % Normal No Apr 16 informa informa 2013 tion in tion in 8:31 AM source source data data NEUTROP 2.67 1.50 - THOU/uL Normal No Apr 16 HIL, 7.00 informa 2013 ABSOLUT tion in 8:31 AM E source data LYMPH, 2.06 1.00 - THOU/uL Normal No Apr 16 ABSOLUT 4.00 informa 2013 E tion in 8:31 AM source data MONO, 0.65 0.00 - THOU/uL Normal No Apr 16 ABSOLUT 1.00 informa 2013 E tion in 8:31 AM source data EOS, 0.28 0.00 - THOU/uL Normal No Apr 16 ABSOLUT 0.40 informa 2013 E tion in 8:31 AM source data BASO, 0.04 0.00 - THOU/uL Normal No Apr 16 ABSOLUT 0.20 informa 2013 E tion in 8:31 AM source data PROTEIN S-FUNCTIONAL Observa Value Referen Units Interpr Notes Date tion ce etation Range PROTEIN 115 60 - % Normal No Apr 22 145 informa 2013 S-FUNCT tion in 6:14 AM IONAL source data PROTEIN C-FUNCTIONAL Observa Value Referen Units Interpr Notes Date tion ce etation Range PROTEIN 159 74 - % Abnorma Perform Apr 22 151 l ed at: 2013 C-FUNCT BN - 6:14 AM IONAL [facility] [place] [address] [place], [place] [id number]Lab Directo r: Joey Ferro MD, Phone: [phone] PROTEIN C ANTIGEN Observa Value Referen Units Interpr Notes Date tion ce etation Range PROTEIN 110 70 - % Normal No Apr 22 C 140 informa 2013 ANTIGEN tion in 6:14 AM source data PROTEIN S-ANTIGEN Observa Value Referen Units Interpr Notes Date tion ce etation Range PROTEIN 92 58 - % Normal No Apr 22 S, 150 informa 2013 TOTAL tion in 6:14 AM source data PROTEIN 68 56 - % Normal No Apr 22 S, 124 informa 2013 FREE tion in 6:14 AM source data HOMOCYSTEINE, PLASMA Observa Value Referen Units Interpr Notes Date tion ce etation Range HOMOCYS 14.9 0.0 - umol/L Normal Perform Apr 21 TEINE, 15.0 ed at: 2013 PLASMA TG - 3:08 PM [facility] [id number] [place], [place] [address] 50Lab Directo r: Kita allison MD, Phone: [phone] ormed at: [facility] [address], [place], [place] [address]Lab Directo r: Darryl Alexis MD, Phone: [phone] FACTOR V LEIDEN MUTATION Observa Value Referen Units Interpr Notes Date tion ce etation Range FACTOR Comment . No Normal Result: Dec 08 V informa 2013 LEIDEN tion in Negativ 3:08 PM source e (no data mutatio n found)F actor V Leiden is a specifi c mutatio n (R506Q) in the factorV gene that is associa vicente with an increas ed risk of venoust hrombos is. Factor V Leiden is more resista nt toinact ivation by activat ed protein C. As a result, factor Vpersis ts in the circula tion leading to a mild hyper-c oagulab le state. The Leiden mutatio n account s for 90% -95% of APC resista nce. Factor V Leiden has been reporte d inpatie nts with deep vein thrombo sis, pulmona ry embolus ,centra l retinal vein occlusi on, cerebra l sinus thrombo sisand hepatic vein thrombo sis. Other risk factors to paulo cates in the workup for venous thrombo sis include pvbB075 10A mutatio n in the factor II (prothr ombin) gene,pr otein S and C deficie ncy, and antithr ombin deficie ncies.A nticard iolipin antibod y and lupus anticoa gulant analysi smay be appropr iate for certain patient s, as well ashomoc ysteine levels. Contact your local [facility] for informa tion on how to orderad ditiona l testing if desired . COMMENT Comment . No Normal Gene Dec 08 : informa tic 2013 tion in beauty counselor 3:08 PM source ors are data availab le for health care provide rs to discuss results at [phone] [place] [address] ([phone]). Methodo logy:DN A analysi s of the Factor V gene was perform ed by allele- specifi c PCR followe d by gel electro phoresi s. The diagnos ticsens itivity and specifi city is >99% for both. Molecul ar-base d testing is highly accurat e, but as in any laborat orytest , diagnos tic errors may occur. All test results must becombi kenroy with clinica l informa tion for the most accurat einterp retatio n.Refer ences:Marie Mahmood (1995). Clin Lab Med 16:169- 186.Anthony clark, PhDNash mendiola, PhDBrandie Zhang, PhDMarc klarissa stearns, PhDSuze renane Rosalinda clark, PhDDoLeno Gayle MD, PhDS PAKO Panda, PhD PIERCE W/REFLEX IF POSITIVE Observa Value Referen Units Interpr Notes Date tion ce etation Range PIERCE Negativ Negativ No Normal Perform Nov 16 DIRECT e e informa ed at: 2013 tion in - 3:13 PM source [facility] data [address] [id number] 69Lab Directo r: Darryl Alexis MD, Phone: [phone] RHEUMATOID FACTOR, QUANT Observa Value Referen Units Interpr Notes Date tion ce etation Range RHEUMAT 9 <12 IU/mL Normal No Apr 15 OID informa 2014 FACTOR, tion in 1:03 PM QUANT source data LIPID PROFILE Observa Value Referen Units Interpr Notes Date tion ce etation Range CHOLEST 156 115 - mg/dL Normal No Apr 15 OTTO 200 informa 2013 tion in 7:36 AM source data TRIGLYC 108 <150 mg/dL Normal No Apr 15 ERIDES informa 2013 tion in 7:36 AM source data HDL 32 >39 mg/dL Low Major Apr 15 CHOLEST risk 2014 OTTO for 7:36 AM Heart Disease (NCEP) LDL 102 <100 mg/dL High Near or Apr 15 CHOLEST above 2014 OTTO Optimal 7:36 AM (NCEP) VLDL 22 No mg/dL Normal No Apr 15 CHOLEST informa informa 2014 OTTO tion in tion in 7:36 AM source source data data NON-HDL 124 No mg/dL Normal Non-HDL Apr 15 informa goal 2014 CHOLEST tion in is 7:36 AM OTTO source equival data ent to the LDL goal plus 30. CHOLEST 4.9 No No Normal No Apr 15 OTTO/HD informa informa informa 2013 L RATIO tion in tion in tion in 7:36 AM source source source data data data Is the N No No No No Apr 15 Patient informa informa informa informa 2014 tion in tion in tion in tion in 6:00 AM Fasting source source source source data data data data COMPREHENSIVE METABOLIC PANEL Observa Value Referen Units Interpr Notes Date tion ce etation Range GLUCOSE 85 70 - mg/dL Normal No Apr 15 100 informa 2013 tion in 7:02 AM source data BLOOD 18 7 - 25 mg/dL Normal No Apr 15 UREA informa 2013 NITROGE tion in 7:02 AM N source data CREATIN 0.87 0.70 - mg/dL Normal No Apr 15 INE 1.30 inform2013 tion in 7:02 AM source data GLOMERU > 60 >60 No Normal GFR is Apr 15 LAR informa only 2014 FILTRAT tion in calcula 7:11 AM ION source vicente for RATE data patient s over 18 years of age anddoes not allow for race. Units are mL/min/ 1.73 m2. BUN/CRE 20.7 10.0 - No High No Apr 15 ATININE 20.0 informa inform2013 RATIO tion in tion in 7:02 AM source source data data SODIUM 140 137 - mEq/L Normal No Apr 15 145 informa 2013 tion in 7:02 AM source data POTASSI 3.7 3.5 - mEq/L Normal No Apr 15 UM 5.1 informa 2013 tion in 7:02 AM source data CHLORID 105 98 - mEq/L Normal No Apr 15 E 109 informa 2013 tion in 7:02 AM source data CARBON 26.0 22.0 - mEq/L Normal No Apr 15 DIOXIDE 30.0 informa 2013 tion in 7:02 AM source data CALCIUM 9.2 8.4 - mg/dL Normal No Apr 15 10.5 informa 2013 tion in 7:02 AM source data TOTAL 6.0 6.3 - g/dL Low No Apr 15 PROTEIN 8.2 informa 2013 tion in 7:02 AM source data ALBUMIN 3.5 3.5 - g/dL Normal No Apr 15 5.0 inform2013 tion in 7:02 AM source data BILIRUB 1.0 0.2 - mg/dL Normal No Apr 15 IN,TOTA 1.3 inform2013 L tion in 7:02 AM source data ASPARTA 29 15 - 46 U/L Normal No Nov 15 TE 2013 AMINOTR tion in 7:02 AM ANSFERA source SE/AST data ALANINE 44 13 - 69 U/L Normal No Apr 15 2013 AMINOTR tion in 7:02 AM ANSFERA source SE/ALT data ALKALIN 66 38 - U/L Normal No Nov 15 E 126 inform2013 PHOSPHA tion in 7:02 AM TASE source data Is the N No No No No Apr 15 Patient informa informa informa informa 2013 tion in tion in tion in tion in 6:00 AM Fasting source source source source data data data data CBC WITH AUTO DIFFERENTIAL Observa Value Referen Units Interpr Notes Date tion ce etation Range WHITE 6.59 4.00 - THOU/uL Normal No Nov 15 BLOOD 11.00 inform2013 COUNT tion in 6:24 AM source data RED 5.25 4.20 - MILL/uL Normal No Nov 15 BLOOD 5.40 inform2013 COUNT tion in 6:24 AM source data HEMOGLO 14.1 12.0 - g/dL Normal No Nov 15 BIN 16.0 inform2013 tion in 6:24 AM source data HEMATOC 42.5 38.0 - % Normal No Nov 15 RIT 47.0 inform2013 tion in 6:24 AM source data MEAN 81.0 82.0 - fL Low No Nov 15 CORPUSC 100.0 2013 ULAR tion in 6:24 AM VOLUME source data MEAN 26.9 26.0 - pg Normal No Nov 15 CORPUSC 33.0 inform2013 ULAR tion in 6:24 AM HEMOGLO source BIN data MEAN 33.2 31.0 - g/dL Normal No Nov 15 CORPUSC 36.0 inform2013 ULAR tion in 6:24 AM HGB source CONC data RED 15.6 11.5 - % High No Nov 15 CELL 14.5 inform2013 DISTRIB tion in 6:24 AM UTION source WIDTH data PLATELE 227 150 - THOU/uL Normal No Nov 15 T COUNT 375 inform2013 tion in 6:24 AM source data MEAN 9.1 8.6 - fL Normal No Nov 15 PLATELE 11.7 inform2013 T tion in 6:24 AM VOLUME source data IMM < 3 <3 % Normal No Nov 15 GRANULO informa 2013 CYTE % tion in 6:24 AM source data NEUTROP 50.2 No % Normal No Apr 15 HILS % informa informa 2013 tion in tion in 6:24 AM source source data data LYMPH % 34.1 No % Normal No Apr 15 informa informa 2013 tion in tion in 6:24 AM source source data data MONO % 11.7 No % Normal No Apr 15 informa informa 2013 tion in tion in 6:24 AM source source data data EOS % 2.7 No % Normal No Apr 15 informa informa 2013 tion in tion in 6:24 AM source source data data BASO % 1.1 No % Normal No Apr 15 informa informa 2013 tion in tion in 6:24 AM source source data data NEUTROP 3.31 1.50 - THOU/uL Normal No Apr 15 HIL, 7.00 inform2013 ABSOLUT tion in 6:24 AM E source data LYMPH, 2.25 1.00 - THOU/uL Normal No Apr 15 ABSOLUT 4.00 informa 2013 E tion in 6:24 AM source data MONO, 0.77 0.00 - THOU/uL Normal No Apr 15 ABSOLUT 1.00 inform2013 E tion in 6:24 AM source data EOS, 0.18 0.00 - THOU/uL Normal No Apr 15 ABSOLUT 0.40 inform2013 E tion in 6:24 AM source data BASO, 0.07 0.00 - THOU/uL Normal No Apr 15 ABSOLUT 0.20 inform2013 E tion in 6:24 AM source data CK-MB (REPEAT) Observa Value Referen Units Interpr Notes Date tion ce etation Range CK-MB 2.30 <=2.37 ng/mL Normal No Apr 14 (REPEAT inform2013 ) tion in 6:24 PM source data TROPONIN I (REPEAT) Observa Value Referen Units Interpr Notes Date tion ce etation Range TROPONI 0.082 <=0.034 ng/mL High No Apr 14 N I inform2013 (REPEAT tion in 6:24 PM ) source data LUNGPR/MALKA Observa Value Referen Units Interpr Notes Date tion ce etation Range TEXT [place] No No No No Apr 14 DIAGNOS informa informa informa informa 2014 IS McDowel tion in tion in tion in tion in 4:43 PM BATTERY l source source source source HealthE data data data data MRMCDep artment of Diagnos osci690 [facility] [place] rodríguez [phone] Patient : Sex: Age: Unit Number: STEVE BERMUDEZ F 58 [id number] 180Orde ne Physici an: Status: Date of : Account Number: NARCISO KIM OWEN ADM IN 953 [id number] ritika Physici an: Locatio n: Room Number: Date of Exam:CHIKI SANTIAGO DPM ESWINGT ONIEL [id number] 4REASON FOR EXAM: R/O TRACI N FOR VISIT: N-STEMI ACCESSI ON # [id number] 8 _Ventil ation/p erfusio n lung scanInd ication : Dyspnea Compari son: Chest x-ray 014Tech nique: 10 millicu kaitlynn xenon-1 33 was adminis tered byinhal ation and 7.2 millicu kaitlynn of technet ium 99m MAA wasadmi nistere d intrave nously. Finding s:There is a large segment al defect within the posteri or basilar segment of the left lower lobe. No corresp onding ventila tiondef ect is noted. There is a moderat e sized segment al defecte ither of the posteri or segment of the left upper lobe or thesupe rior segment of the left lower lobe. An additio nal mediums ized segment al defect involvi ng the lingula . Smallsu bsegmen raymond defects are noted bilater ally without corresp ondingv entilat ion abnorma lity.Im pressio n:High probabi lity of pulmona ry embolus by PIOPED II criteri a.Site 1 ____Ele ctronic ally signed by: YOSSI Herrera te: 4Time: 16:47__ ___SAVANNA DOVE MDDicta vicente: 4 1643Sig kenroy : 4 1648 CK-MB (REPEAT) Observa Value Referen Units Interpr Notes Date tion ce etation Range CK-MB 2.63 <=2.37 ng/mL High RESULT Dec 01 (REPEAT alert CALLED 2013 ) TO 5:36 AM STORM CARTER RN TELEVER IFIED BY READ BACK OF PATIENT NAME AND RESULTB Wojciech ARREOAL, RELAY MAN 4 0534 TROPONIN I (REPEAT) Observa Value Referen Units Interpr Notes Date tion ce etation Range TROPONI 0.096 <=0.034 ng/mL High No Nov 14 N I informa 2013 (REPEAT tion in 5:33 AM ) source data MYOGLOBIN Observa Value Referen Units Interpr Notes Date tion ce etation Range MYOGLOB 49.8 <61.5 ng/mL Normal No Apr 14 IN informa 2013 tion in 5:33 AM source data CK-MB (REPEAT) Observa Value Referen Units Interpr Notes Date tion ce etation Range CK-MB 3.38 <=2.37 ng/mL High RESULT Nov 30 (REPEAT alert CALLED 2013 ) TO 11:46 STORM CARTER RN TELEVER IFIED BY READ BACK OF PATIENT NAME AND RESULTB Wojciech ARREOLA, RELAY MAN 4 2344 TROPONIN I (REPEAT) Observa Value Referen Units Interpr Notes Date tion ce etation Range TROPONI 0.104 <=0.034 ng/mL High No Nov 13 N I informa 2013 (REPEAT tion in 11:39 ) source PM data MYOGLOBIN Observa Value Referen Units Interpr Notes Date tion ce etation Range MYOGLOB 47.0 <61.5 ng/mL Normal No Apr 13 IN informa 2013 tion in 11:31 source PM data UA C\\T\\S IF INDICATED W/MICRO Observa Value Referen Units Interpr Notes Date tion ce etation Range COLLECT CLEAN No No Normal No Nov 13 ION CATCH informa informa informa 2013 METHOD tion in tion in tion in 9:41 PM source source source data data data COLOR COLORLE No No Normal No Nov 13 SS informa informa informa 2013 tion in tion in tion in 9:56 PM source source source data data data APPEARA CLEAR No No Normal No Nov 13 NCE informa informa informa 2013 tion in tion in tion in 9:56 PM source source source data data data GLUCOSE NEGATIV NEGATIV mg/dL Normal No Nov 13 E E informa 2013 tion in 9:56 PM source data BILIRUB NEGATIV NEGATIV mg/mL Normal No Nov 13 IN E E informa 2013 tion in 9:56 PM source data KETONE NEGATIV NEGATIV mg/dL Normal No Nov 13 E E informa 2013 tion in 9:56 PM source data SPECIFI 1.004 1.003 - No Normal No Nov 13 C 1.035 informa informa 2013 GRAVITY tion in tion in 9:56 PM source source data data BLOOD NEGATIV NEGATIV mg/dL Normal No Nov 13 E E informa 2013 tion in 9:56 PM source data pH 6.0 5.0 - No Normal No Nov 13 9.0 informa informa 2013 tion in tion in 9:56 PM source source data data PROTEIN NEGATIV NEGATIV mg/dL Normal No Nov 13 E E informa 2013 tion in 9:56 PM source data UROBILI NORMAL <2 mg/dL Normal No Nov 13 NOGEN informa 2013 tion in 9:56 PM source data NITRITE NEGATIV NEGATIV No Normal No Nov 13 E E informa informa 2013 tion in tion in 9:56 PM source source data data LEUKOCY NEGATIV NEGATIV LUZ MARINA/uL Normal No Nov 30 TE E E informa 2014 ESTERAS tion in 9:56 PM E source data RBC NONE No /hpf Normal No Nov 30 OBSERVE informa informa 2013 D tion in tion in 9:56 PM source source data data WBC 0-5 No /hpf Normal No Nov 13 informa informa 2014 tion in tion in 9:56 PM source source data data SQUAMOU 0-5 No /hpf Normal No Nov 13 S informa informa 2014 EPITHEL tion in tion in 9:56 PM IAL source source CELLS data data BACTERI NONE No /hpf Normal No Nov 30 A OBSERVE informa informa 2013 D tion in tion in 9:56 PM source source data data Specime CLEAN No No No No Nov 30 n Type CATCH informa informa informa informa 2014 tion in tion in tion in tion in 9:25 PM source source source source data data data data PTCXR Observa Value Referen Units Interpr Notes Date tion ce etation Range TEXT [place] No No No No Nov 30 DIAGNOS informa informa informa informa 2013 IS McDowel tion in tion in tion in tion in 4:58 PM BATTERY l source source source source HealthE data data data data MRMCDep artment of Diagnos [id number] [place] [phone] Patient : Sex: Age: Unit Number: STEVE BERMUDEZ 58 [id number] 180[address] ne Physici an: Status: Date of : Account Number: NABEEL ARMSTRONG MD PRE ER 953 [id number] ritika Lundberg an: Locatio n: Room Number: Date of Exam:CHIKI SANTIAGO DPM EEMR 4REASON FOR EXAM: CHEST PAINREA SON FOR VISIT: SOA, LIGHT-H EADENES S, CHEST TIGHTNE SSACCES TERESO # [id number] 68 __Chest , single view.In dicatio n: Chest pain.Co mpariso n: 007.Fin dings: The lungs are clear. The cardiac and mediast inalcon tours are within normal limits. There are no pleural effusio ns or edema. There is no pneumon ia. There is nopneum othorax . There are no acute bony abnorma lities. Impress ion:Nor mal chest.S ite 1 ____Ele ctronic ally signed by: MAGNOLIA ALDRICH ate: 4Time: 16:59__ ___MAGNOLIA OLIVER MDDicta vicente: 4 1658Sig kenroy : 4 1703 BEDSIDE TROPONIN Observa Value Referen Units Interpr Notes Date tion ce etation Range BEDSIDE 0.10 0.00 - ng/mL High No Nov 13 0.08 informa 2013 TROPONI tion in 4:57 PM N source data HEMOGLOBIN A1C Observa Value Referen Units Interpr Notes Date tion ce etation Range HEMOGLO 5.4 <6.0 % Normal Hgb A1C Nov 14 BIN A1C 2013 Correla 8:47 AM tion to Glucose HgbA1c% Mean Plasma Glucose 6% 135 mg/dL7% 170 mg/dL8% 205 mg/dL9% 240 mg/dL10 % 275 mg/dL11 % 310 mg/dL12 % 345 mg/dL THYROID STIMULATING HORMONE Observa Value Referen Units Interpr Notes Date tion ce etation Range THYROID 0.92 0.46 - uIU/mL Normal No Nov 13 4.68 informa 2013 STIMULA tion in 7:04 PM TING source HORMONE data PROTIME WITH INR Observa Value Referen Units Interpr Notes Date tion ce etation Range PROTHRO 11.0 9.8 - sec Normal No Nov 30 MBIN 11.5 informa 2013 TIME tion in 6:51 PM source data INTERNA 1.04 No No Normal Interpr Apr 13 TIONAL informa informa etation 2014 NORMALI tion in tion in of INR 6:51 PM ZED source source RATIO data data ([employer] ational Normali zed Ratio)i s depende nt upon patient 's anticoa gulant therapy .Result s greater than or equal to 4.0 are conside redcrit ical. LIPID PROFILE Observa Value Referen Units Interpr Notes Date ti ce etation Range CHOLEST 186 115 - mg/dL Normal No Nov 30 OTTO 200 informa 2013 tion in 6:49 PM source data TRIGLYC 166 <150 mg/dL High Borderl Nov 30 ERIDES ine 2014 High 6:49 PM (NCEP) HDL 38 >39 mg/dL Low Major Nov 30 CHOLEST risk 2014 OTTO for 6:49 PM Heart Disease (NCEP) LDL 115 <100 mg/dL High Near or Nov 30 CHOLEST above 2014 OTTO Optimal 6:49 PM (NCEP) VLDL 33 No mg/dL Normal No Nov 30 CHOLEST informa informa 2014 OTTO tion in tion in 6:49 PM source source data data NON-HDL 148 No mg/dL Normal Non-HDL Nov 30 informa goal 2014 CHOLEST tion in is 6:49 PM OTTO source equival data ent to the LDL goal plus 30. CHOLEST 4.9 No No Normal No Nov 30 OTTO/HD informa informa informa 2014 L RATIO tion in tion in tion in 6:49 PM source source source data data data COMPREHENSIVE METABOLIC PANEL Observa Value Referen Units Interpr Notes Date ti ce etation Range SODIUM 140 137 - mEq/L Normal No Nov 13 145 informa 2013 tion in 5:24 PM source data POTASSI 3.5 3.5 - mEq/L Normal No Nov 30 UM 5.1 informa 2013 tion in 5:24 PM source data CHLORID 106 98 - mEq/L Normal No Nov 30 E 109 informa 2013 tion in 5:24 PM source data CREATINE KINASE Observa Value Referen Units Interpr Notes Date tion ce etation Range CREATIN 80 30 - U/L Normal No Nov 30 E 135 inform2013 KINASE tion in 5:05 PM source data CK-MB (INITIAL) Observa Value Referen Units Interpr Notes Date tion ce etation Range CK-MB 3.55 <=2.37 ng/mL High RESULT Nov 30 (INITIA alert CALLED 2014 L) TO 5:20 PM EDUARD Mahmood RN, ERVERIF IED BY READ BACK OF PATIENT NAME AND RESULTB Y PITO VICENTE MLT ([facility]) 4 1719 CBC WITH AUTO DIFFERENTIAL Observa Value Referen Units Interpr Notes Date tion ce etation Range WHITE 9.68 4.00 - THOU/uL Normal No Nov 30 BLOOD 11.00 informa 2013 COUNT tion in 4:54 PM source data RED 5.74 4.20 - MILL/uL High No Nov 30 BLOOD 5.40 inform2013 COUNT tion in 4:54 PM source data HEMOGLO 15.3 12.0 - g/dL Normal No Nov 30 BIN 16.0 inform2013 tion in 4:54 PM source data HEMATOC 46.3 38.0 - % Normal No Nov 30 RIT 47.0 inform2013 tion in 4:54 PM source data MEAN 80.7 82.0 - fL Low No Nov 30 CORPUSC 100.0 inform2013 ULAR tion in 4:54 PM VOLUME source data MEAN 26.7 26.0 - pg Normal No Nov 30 CORPUSC 33.0 inform2013 ULAR tion in 4:54 PM HEMOGLO source BIN data MEAN 33.0 31.0 - g/dL Normal No Nov 30 CORPUSC 36.0 inform2013 ULAR tion in 4:54 PM HGB source CONC data RED 16.1 11.5 - % High No Nov 30 CELL 14.5 inform2013 DISTRIB tion in 4:54 PM UTION source WIDTH data PLATELE 271 150 - THOU/uL Normal No Nov 30 T COUNT 375 inform2013 tion in 4:54 PM source data MEAN 9.2 8.6 - fL Normal No Nov 30 PLATELE 11.7 inform2013 T tion in 4:54 PM VOLUME source data IMM < 3 <3 % Normal No Nov 30 GRANULO informa 2013 CYTE % tion in 4:54 PM source data NEUTROP 61.7 No % Normal No Apr 13 HILS % informa informa 2013 tion in tion in 4:54 PM source source data data LYMPH % 25.3 No % Normal No Nov 13 informa informa 2013 tion in tion in 4:54 PM source source data data MONO % 10.6 No % Normal No Nov 30 informa informa 2013 tion in tion in 4:54 PM source source data data EOS % 1.5 No % Normal No Nov 30 informa informa 2013 tion in tion in 4:54 PM source source data data BASO % 0.7 No % Normal No Nov 30 informa informa 2013 tion in tion in 4:54 PM source source data data NEUTROP 5.96 1.50 - THOU/uL Normal No Nov 30 HIL, 7.00 inform2013 ABSOLUT tion in 4:54 PM E source data LYMPH, 2.45 1.00 - THOU/uL Normal No Nov 30 ABSOLUT 4.00 informa 2013 E tion in 4:54 PM source data MONO, 1.03 0.00 - THOU/uL High No Nov 30 ABSOLUT 1.00 informa 2013 E tion in 4:54 PM source data EOS, 0.15 0.00 - THOU/uL Normal No Nov 13 ABSOLUT 0.40 informa 2013 E tion in 4:54 PM source data BASO, 0.07 0.00 - THOU/uL Normal No Nov 13 ABSOLUT 0.20 informa 2013 E tion in 4:54 PM source data MAMSCRD Observa Value Referen Units Interpr Notes Date tion ce etation Range TEXT Vincenzo No No No No Nov 4 DIAGNOS informa informa informa informa 2012 IS McDowel tion in tion in tion in tion in 10:13 BATTERY l source source source source AM HealthE data data data data MRMCDep artment of Diagnos [id number] [place] [phone] Patient : Sex: Age: Unit Number: STEVE BERMUDEZ F 57 [id number] [address] Physici an: Status: Date of : Account Number: WILLIS ROJAS MD REG CLI 953 [id number] ritika Physici an: Locatio n: Room Number: Date of Exam:WILLIS BRUNO MD [facility] 3REASON FOR EXAM:RE ASON FOR VISIT: V76.12/ SCREEN, V16.3AC CESSION # [id number] 10 __Scree farrah digital mammogr am with CADINDI CATION: Screeni ng mammogr am. Patient reports mother andaunt with a history of breast cancerC OMPARIS ON: 012, 011, 009TECH NIQUE: Bilater al digital MLO, CC views with CAD.ANTOINETTE DINGS:T he breast parench yma is heterog eneousl y dense which limits thesens itivity and specifi city of mammogr aphy. There are nomasse s, suspici ous calcifi cations or areas of archite cturald istorti on.IMPR ESSION: ACR Bi-Rads Categor y 1 - Negativ e finding s.Lette r A.RECOM MENDATI ON: Yearly screeni ng mammogr am.LAINE MEDEIROS FINAL REPORTI NG CATEGOR IES:0 - Assessm ent is incompl ete; needs additio nal imaging 1 - Negativ e2 - Benign finding s3 - Probabl y benign; short interva l follow- up indicat ed4 - Suspici ous abnorma lity; biopsy should be conside red5 - Highly suspici ous of maligna ncy; appropr iate action to [facility] Site 1 ____Ele ctronic ally signed by: Radha Herrera te: 3Time: 10:17__ ___SAVANNA DOVE MDDicta vicente: 3 1013Sig kenroy : 3 1017 CK-MB (REPEAT) Observa Value Referen Units Interpr Notes Date tion ce etation Range CK-MB 1.78 <=2.37 ng/mL Normal No Sep 25 (REPEAT informa 2011 ) tion in 6:34 AM source data TROPONIN I (REPEAT) Observa Value Referen Units Interpr Notes Date tion ce etation Range TROPONI 0.190 <=0.034 ng/mL High RESULT Sep 25 N I alert CALLED 2011 (REPEAT TO 6:40 AM ) MICHAEL CASPER RN ON TELEMET RYVERIF IED BY READ BACK OF PATIENT NAME AND RESULTB Y STEVE Mclaughlin, [place] ([facility]) 2 0637 MYOGLOBIN Observa Value Referen Units Interpr Notes Date tion ce etation Range MYOGLOB 38.9 <61.5 ng/mL Normal No Sep 25 IN informa 2011 tion in 6:34 AM source data CK-MB (INITIAL) Observa Value Referen Units Interpr Notes Date tion ce etation Range CK-MB 2.01 <=2.37 ng/mL Normal No Sep 25 (INITIA informa 2011 L) tion in 1:44 AM source data TROPONIN I (INITIAL) Observa Value Referen Units Interpr Notes Date tion ce etation Range TROPONI 0.174 <=0.034 ng/mL High RESULT Sep 25 N I alert CALLED 2011 (INITIA TO 1:46 AM L) TELEMET RY TO HELIO PEOPLES RNVERIF IED BY READ BACK OF PATIENT NAME AND RESULTB Wojciech JIMÉNEZ PR 2 0145<= 0.034 (99TH PERCENT ILE OF NORMAL POPULAT ION)>= 0.120 (AMI CUTOFF) ALL RESULTS MUST BE CORRELA VICENTE WITH [facility] L FINDING S MYOGLOBIN Observa Value Referen Units Interpr Notes Date tion ce etation Range MYOGLOB 46.4 <61.5 ng/mL Normal No Sep 25 IN inform2011 tion in 1:45 AM source data FREE T4 Observa Value Referen Units Interpr Notes Date tion ce etation Range FREE T4 1.19 0.78 - ng/dL Normal No Sep 24 2.19 inform2011 tion in 8:44 PM source data THYROID STIMULATING HORMONE Observa Value Referen Units Interpr Notes Date tion ce etation Range THYROID 1.21 0.46 - uIU/mL Normal No Sep 24 4.68 2011 STIMULA tion in 8:44 PM TING source HORMONE data CK-MB (INITIAL) Observa Value Referen Units Interpr Notes Date tion ce etation Range CK-MB 2.28 <=2.37 ng/mL Normal No Sep 24 (INITIA inform2011 L) tion in 8:25 PM source data TROPONIN I (INITIAL) Observa Value Referen Units Interpr Notes Date tion ce etation Range TROPONI 0.134 <=0.034 ng/mL High RESULT Sep 24 N I alert CALLED 2011 (INITIA TO 8:33 PM L) VANDANA BARTON RIFIED BY READ BACK OF PATIENT NAME AND RESULTB Y MUNIRA Bisi [facility] 2031<= 0.034 (99TH PERCENT ILE OF NORMAL POPULAT ION)>= 0.120 (AMI CUTOFF) ALL RESULTS MUST BE CORRELA VICENTE WITH CLINICA L FINDING S MYOGLOBIN Observa Value Referen Units Interpr Notes Date tion ce etation Range MYOGLOB 41.7 <61.5 ng/mL Normal No Sep 24 IN 2011 tion in 8:25 PM source data COMPREHENSIVE METABOLIC PANEL Observa Value Referen Units Interpr Notes Date tion ce etation Range GLUCOSE 107 70 - mg/dL High No Sep 24 100 inform2011 tion in 8:33 PM source data BLOOD 27 7 - 25 mg/dL High No Sep 24 UREA a 2011 NITROGE tion in 8:33 PM N source data CREATIN 0.80 0.70 - mg/dL Normal No Sep 24 INE 1.30 inform2011 tion in 8:33 PM source data GLOMERU > 60 >60 No Normal GFR is Sep 24 LAR informa only 2012 FILTRAT tion in calcula 8:33 PM ION source vicente for RATE data patient s over 18 years of age anddoes not allow for race. Units are mL/min/ 1.73 m2. BUN/CRE 33.8 10.0 - No High No Sep 24 ATININE 20.0 informa informa 2011 RATIO tion in tion in 8:33 PM source source data data SODIUM 142 137 - mEq/L Normal No Sep 24 145 informa 2011 tion in 8:33 PM source data POTASSI 4.2 3.5 - mEq/L Normal No Sep 24 UM 5.1 informa 2011 tion in 8:33 PM source data CHLORID 101 98 - mEq/L Normal No Sep 24 E 109 informa 2011 tion in 8:33 PM source data CARBON 28.0 22.0 - mEq/L Normal No Sep 24 DIOXIDE 30.0 informa 2011 tion in 8:33 PM source data CALCIUM 9.3 8.4 - mg/dL Normal No Sep 24 10.2 inform2011 tion in 8:33 PM source data TOTAL 7.2 6.3 - g/dL Normal No Sep 24 PROTEIN 8.2 inform2011 tion in 8:33 PM source data ALBUMIN 4.2 3.5 - g/dL Normal No Sep 24 5.0 inform2011 tion in 8:33 PM source data BILIRUB 0.6 0.2 - mg/dL Normal No Sep 24 IN,TOTA 1.3 informa 2011 L tion in 8:33 PM source data ASPARTA 27 15 - 46 U/L Normal No Sep 24 TE inform2011 AMINOTR tion in 8:33 PM ANSFERA source SE/AST data ALANINE 24 13 - 69 U/L Normal No Sep 24 inform2011 AMINOTR tion in 8:33 PM ANSFERA source SE/ALT data ALKALIN 78 38 - U/L Normal No Sep 24 E 126 inform2011 PHOSPHA tion in 8:33 PM TASE source data CBC WITH AUTO DIFFERENTIAL Observa Value Referen Units Interpr Notes Date tion ce etation Range WHITE 7.89 4.00 - THOU/uL Normal No Sep 24 BLOOD 11.00 inform2011 COUNT tion in 7:42 PM source data RED 5.55 4.20 - MILL/uL High No Sep 24 BLOOD 5.40 informa 2011 COUNT tion in 7:42 PM source data HEMOGLO 14.1 12.0 - g/dL Normal No Sep 24 BIN 16.0 inform 2012 tion in 7:42 PM source data HEMATOC 42.5 38.0 - % Normal No Sep 24 RIT 47.0 informa 2011 tion in 7:42 PM source data MEAN 76.6 82.0 - fL Low No Sep 24 CORPUSC 100.0 informa 2011 ULAR tion in 7:42 PM VOLUME source data MEAN 25.4 26.0 - pg Low No Sep 24 CORPUSC 33.0 informa 2011 ULAR tion in 7:42 PM HEMOGLO source BIN data MEAN 33.2 31.0 - g/dL Normal No Sep 24 CORPUSC 36.0 informa 2011 ULAR tion in 7:42 PM HGB source CONC data RED 16.1 11.5 - % High No Sep 24 CELL 14.5 informa 2011 DISTRIB tion in 7:42 PM UTION source WIDTH data PLATELE 347 150 - THOU/uL Normal No Sep 24 T COUNT 375 informa 2011 tion in 7:42 PM source data MEAN 8.9 8.6 - fL Normal No Sep 24 PLATELE 11.7 inform2011 T tion in 7:42 PM VOLUME source data IMM < 3 <3 % Normal No Sep 24 GRANULO inform2011 CYTE % tion in 7:42 PM source data NEUTROP 55.9 47.0 - % Normal No Sep 24 HILS % 76.0 2011 tion in 7:42 PM source data LYMPH % 30.3 12.0 - % Normal No Sep 24 44.0 2011 tion in 7:42 PM source data MONO % 11.8 2.0 - % Normal No Sep 24 12.0 2011 tion in 7:42 PM source data EOS % 1.5 0.0 - % Normal No Sep 24 6.0 informa 2011 tion in 7:42 PM source data BASO % 0.4 0.0 - % Normal No Sep 24 2.0 inform2011 tion in 7:42 PM source data NEUTROP 4.41 1.50 - THOU/uL Normal No Sep 24 HIL, 7.00 inform2011 ABSOLUT tion in 7:42 PM E source data LYMPH, 2.39 1.00 - THOU/uL Normal No Sep 24 ABSOLUT 4.00 inform2011 E tion in 7:42 PM source data MONO, 0.93 0.00 - THOU/uL Normal No Sep 24 ABSOLUT 1.00 informa 2011 E tion in 7:42 PM source data EOS, 0.12 0.00 - THOU/uL Normal No Sep 24 ABSOLUT 0.40 informa 2011 E tion in 7:42 PM source data BASO, 0.03 0.00 - THOU/uL Normal No Sep 24 ABSOLUT 0.20 informa 2011 E tion in 7:42 PM source data METHYLMALONIC ACID, SERUM Observa Value Referen Units Interpr Notes Date tion ce etation Range METHYLM 154 73 - nmol/L Normal The Mar 21 ALONIC 376 referen 2011 ACID, ce 5:08 PM SERUM range for methylm alonic acid has been set at+3sd above the mean for healthy blood bank donors. In theclin ical assessm ent of patient s with megalob lastic anemias a cutoff of +3sd provide s greater specifi city in [facility] nosis of the vitamin deficie ncy states, despite thesacr ifice of some sensiti vity.Pe rformed at: BN - [facility] [address] [id number]Lab Directo r: Joey Ferro MD, Phone: [phone] VITAMIN B12 Observa Value Referen Units Interpr Notes Date tion ce etation Range VITAMIN 287 239 - pg/mL Normal No Mar 19 B12 931 inform2011 tion in 2:29 PM source data FREE T4 Observa Value Referen Units Interpr Notes Date tion ce etation Range FREE T4 1.37 0.78 - ng/dL Normal No Mar 18 2.19 inform2011 tion in 3:05 PM source data THYROID STIMULATING HORMONE Observa Value Referen Units Interpr Notes Date tion ce etation Range THYROID 0.86 0.46 - uIU/mL Normal No Mar 18 4.68 inform2011 STIMULA tion in 3:05 PM TING source HORMONE data COMPREHENSIVE METABOLIC PANEL Observa Value Referen Units Interpr Notes Date tion ce etation Range GLUCOSE 85 70 - mg/dL Normal No Mar 18 100 inform2011 tion in 11:36 source AM data BLOOD 20 7 - 25 mg/dL Normal No Mar 18 UREA inform2011 NITROGE tion in 11:36 N source AM data CREATIN 0.80 0.70 - mg/dL Normal No Mar 18 INE 1.30 informa 2012 tion in 11:36 source AM data GLOMERU 78 >60 No Normal GFR is Mar 18 LAR informa only 2012 FILTRAT tion in calcula 11:36 ION source vicente for AM RATE data patient s over 18 years of age anddoes not allow for race. Units are mL/min/ 1.73 m2. BUN/CRE 25.0 10.0 - No High No Mar 18 ATININE 20.0 informa informa 2011 RATIO tion in tion in 11:36 source source AM data data SODIUM 142 137 - mEq/L Normal No Mar 18 145 informa 2011 tion in 11:36 source AM data POTASSI 3.7 3.5 - mEq/L Normal No Mar 18 UM 5.1 informa 2011 tion in 11:36 source AM data CHLORID 104 98 - mEq/L Normal No Mar 18 E 109 informa 2011 tion in 11:36 source AM data CARBON 27.3 22.0 - mEq/L Normal No Mar 18 DIOXIDE 30.0 informa 2011 tion in 11:36 source AM data CALCIUM 9.7 8.4 - mg/dL Normal No Mar 18 10.2 informa 2011 tion in 11:36 source AM data TOTAL 6.7 6.3 - g/dL Normal No Mar 18 PROTEIN 8.2 informa 2011 tion in 11:36 source AM data ALBUMIN 3.9 3.5 - g/dL Normal No Mar 18 5.0 informa 2011 tion in 11:36 source AM data BILIRUB 0.6 0.2 - mg/dL Normal No Mar 18 IN,TOTA 1.3 informa 2011 L tion in 11:36 source AM data ASPARTA 32 15 - 46 U/L Normal No Mar 18 TE informa 2011 AMINOTR tion in 11:36 ANSFERA source AM SE/AST data ALANINE 36 13 - 69 U/L Normal No Mar 18 informa 2011 AMINOTR tion in 11:36 ANSFERA source AM SE/ALT data ALKALIN 77 38 - U/L Normal No Mar 18 E 126 informa 2011 PHOSPHA tion in 11:36 TASE source AM data LIPID PROFILE Observa Value Referen Units Interpr Notes Date tion ce etation Range CHOLEST 187 115 - mg/dL Normal No Mar 18 OTTO 200 informa 2012 tion in 11:36 source AM data TRIGLYC 79 <150 mg/dL Normal No Mar 18 ERIDES informa 2012 tion in 11:36 source AM data HDL 55 >39 mg/dL Normal No Mar 18 CHOLEST informa 2012 OTTO tion in 11:36 source AM data LDL 116 <100 mg/dL High Near or Mar 18 CHOLEST above 2012 OTTO Optimal 12:22 (NCEP) PM VLDL 16 No mg/dL Normal No Mar 18 CHOLEST informa informa 2012 OTTO tion in tion in 11:36 source source AM data data CHOLEST 3.4 No No Normal No Mar 18 OTTO/HD informa informa informa 2012 L RATIO tion in tion in tion in 11:36 source source source AM data data data Is the Y No No No No Mar 18 Patient informa informa informa informa 2012 tion in tion in tion in tion in 10:05 Fasting source source source source AM data data data data CBC WITH AUTO DIFFERENTIAL Observa Value Referen Units Interpr Notes Date tion ce etation Range WHITE 6.4 4.4 - K/uL Normal No Mar 18 BLOOD 10.8 informa 2011 COUNT tion in 11:00 source AM data RED 5.43 3.70 - M/uL Normal No Mar 18 BLOOD 5.60 informa 2011 COUNT tion in 11:00 source AM data HEMOGLO 13.6 11.0 - g/dL Normal No Mar 18 BIN 15.0 informa 2011 tion in 11:00 source AM data HEMATOC 42.6 34.0 - % Normal No Mar 18 RIT 46.0 informa 2011 tion in 11:00 source AM data MEAN 79 81 - 99 fL Low No Mar 18 CORPUSC informa 2012 ULAR tion in 11:00 VOLUME source AM data MEAN 25.0 26.0 - pg Low No Mar 18 CORPUSC 32.0 informa 2011 ULAR tion in 11:00 HEMOGLO source AM BIN data MEAN 31.9 31.0 - g/dL Normal No Mar 18 CORPUSC 36.0 informa 2011 ULAR tion in 11:00 HGB source AM CONC data PLATELE 362 150 - K/uL Normal No Mar 18 T COUNT 400 informa 2011 tion in 11:00 source AM data AUTOMAT 31.9 11.0 - % Normal No Mar 18 ED 45.0 informa 2011 LYMPH % tion in 11:00 source AM data AUTOMAT 12.7 1.0 - % Normal No Mar 18 ED 15.0 informa 2011 MIXED tion in 11:00 WBC % source AM data AUTOMAT 55.4 46.0 - % Normal No Mar 18 ED 72.0 informa 2012 NEUTROP tion in 11:00 HILS % source AM data MAMSCRD Observa Value Referen Units Interpr Notes Date tion ce etation Range TEXT [place] No No No No Sep 21 DIAGNOS informa informa informa informa 2012 IS McDowel tion in tion in tion in tion in 10:55 BATTERY l source source source source AM HealthE data data data data MRMCDep artment of Diagnos [id number] [place] [phone] Patient : Sex: Age: Unit Number: STEVE BERMUDEZ F 56 [id number] [address] Physici an: Status: Date of : Account Number: WILLIS ROJAS MD [facility] 953 [id number] [facility] Physici an: Locatio n: Room Num: Date of Exam:NO FAMILY, PHYSICMarialuisa [facility] 2REASON FOR EXAM:RE ASON FOR VISIT: KENISHA HUGHES N # [id number] 0201-00 21 __BILAT ERAL SCREENI NG DIGITAL MAMMOGR AM (with CAD):Jamie griffith n: 2008, 2010.Th e breasts remain stable mammogr aphical ly. The fibrogl andular element s remain moderat iban dense in both breasts . This doeslow er mammogr aphic sensiti vity. There are no dominan t masses orsuspi cious calcifi cations noted. No archite ctural distort ion,ski n thicken ing or retract ion is seen .Impres tereso: Stable mammogr am with no signifi cant change frompri or study.B IRADS categor y: 1 Letter ABIRADS FINAL REPORTI NG CATEGOR IES:0 - Assessm ent is incompl ete; needs additio nal imaging 1 - Negativ e2 - Benign finding s3 - Probabl y benign; short interva l follow- up indicat ed4 - Suspici ous abnorma lity; biopsy should be conside red5 - Highly suggest lyndsey of maligna ncy; appropr iate action to betaken ___Elec tronica lly signed by: Aren Calloway ate: 2Time: 10:59__ ___DAVI D Nirmal ARMAS MD HIGH RISK HPV DNA DETECTION Observa Value Referen Units Interpr Notes Date tion ce etation Range HPV VCE () No Normal No Sep 19 SOURCE informa informa 2011 tion in tion in 11:22 source source PM data data HPV Negativ Negativ No Normal INTERPR Sep 19 HIGH e e informa ETIVE 2012 RISK tion in INFORMA 11:22 source TION: PM data HPV DNA Probe, High Risk, ThinPre pThe high-ri sk HPV test detects HPV genotyp es 16, 18, 31,33, 35, 39, 45, 51, 52, 56, 58, 59, and 68, which areasso ciated with cervica l cancer and its precurs or lesions .Howeve r, cross-r eaction s with other genotyp es may occur.R esults should be correla vicente with cytolog ic and histolo gicfind ings. Sensiti vity may be affecte d by cellula rity ofspeci men.Per formed by BOB salgado,[address] [place] [address] [phone] [email or web address], Fatmata Laguerre MD, Lab. Directo r HPV VCE No No No No Sep 14 SOURCE: informa informa informa informa 2011 in in in in 10:00 source source source source AM data data data data
--- OUTSIDE RECORDS SUMMARY | 2017-05-30 23:27 | External Medical Summary Rpt ---
Author Author [employer], [employer] Organization [employer] Address Unknown Phone Unavailable Results WRIST LT Observa Value Referen Units Interpr Notes Date tion ce etation Range TEXT [place] No No No No May 23 DIAGNOS informa informa informa informa 2016 IS [place] tion in tion in tion in tion in 12:07 BATTERY l source source source source PM HealthE data data data data MRMCDep artment of Diagnos mqmk508 [place] [phone] Patient : Sex: Age: Unit Number: STEVE BERMUDEZ F F 64 [id number] 180Orde ne Physici an: Status: Date of : Account Number: LINUS BROWN APRN REG CLI 953 [id number] ritika Lundberg an: Locatio n: Room Number: Date of Exam:LINUS GUIDRY BENZOL 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 EDFPHYS 7REASON FOR EXAM: FALLREA SON FOR VISIT:A CCESSIO N # [id number] 1004-00 09 __Left wrist 4 views:C linical [...] No No No No May 15 DIAGNOS [id number] informa informa informa informa 2017 IS - Skin, tion in tion in tion in tion in BATTERY NOS source source source source data data data data TEXT [id number] No No No No May 15 DIAGNOS [...] source source data data data data TEXT [id number] No No No No May 15 DIAGNOS - informa informa informa informa 2017 IS SKIN\\F\\ tion in tion in tion in tion in BATTERY Hyperke source source source source ratosis data data data data TEXT [id number] No No No No May 15 DIAGNOS [...] [place] [address] tion in tion in tion in tion in BATTERY source source source source data data data data TEXT ([id number] No No No No May 15 DIAGNOS [...] [place] inform[place] [address] tion in tion in tion in tion in BATTERY source source source source data data data data TEXT [id number] No No No No May 15 DIAGNOS [...] Notes Date tion ce etation Range TEXT [place] No No No No Feb 27 DIAGNOS informa informa informa informa 2016 IS [place] tion in tion in tion in tion in 2:02 PM BATTERY l source source source source HealthE data data data data MRMCDep artment of Diagnos lsmk020 [place] [phone] Patient : Sex: Age: Unit Number: STEVE BERMUDEZ F 63 [id number] 180Orde ring Physici an: Status: Date of : Account Number: BILLY SANZ MD REG CLI 953 [id number] ritika Physici an: Locatio n: Room Number: Date of Exam:LUCIA LYON [facility] 7REASON FOR EXAM: SCREEN Z12.31R NEDRA FOR VISIT: R92.0,M AMMOGRA PHIC MICROCA LCIFICA TION FOUND [facility] TERESO # [id number] 0711-00 33 __Diagn ostic digital mammogr am [...] Biopsy clips arenote d at the previou [facility] describ ed concern ing calcifi cations withthe [...] 2016 tion in 3:06 PM source data [id number] Observa Value Referen Units Interpr Notes Date tion ce etation Range TEXT [place] No No No No December 26 DIAGNOS informa informa informa informa 2016 IS [place] tion in tion in tion in tion in 1:43 PM BATTERY l source source source source HealthE data data data data MRMCDep artment of Diagnos viaw710 [place] [phone] Patient : Sex: Age: Unit Number: STEVE BERMUDEZ F 63 [id number] 180Orde ne Physici an: Status: Date of : Account Number: RACHEL GOMEZ ASL INTERPRETER REG R 953 [id number] ritika Physici an: Locatio n: Room Number: Date of Exam:LUCIA LYON ENUCMED 7REASON FOR EXAM: ABN LABSREA SON FOR VISIT: OTHER SPECIFI ED ABNORMA L FINDING S OF BLOODAC CESSION # [id number] 508-000 4 _Thyroi d scan and uptake: [...] ACID, BN - 6:14 AM SERUM [facility] [place], [place] [address] 61Lab Directo r: Joey Ferro MD, Phone: [phone] VITAMIN B12 Observa Value Referen Units Interpr [...] data data data MRMCDep artment of Diagnos ychg974 [facility] JURGEN rodríguez [phone] [phone] Patient : Sex: Age: Unit Number: STEVE BERMUDEZ F 63 [id number] 180Orde ring Physici an: Status: Date of : Account Number: KAELA WELCH MD [facility] ER 953 [id number] ritika Lundberg an: Locatio n: Room Number: Date of Exam:LUCIA LYON EE 7REASON FOR EXAM: rlq abdomin alREASO N FOR VISIT: SEVERE ABDOMIN AL PAIN-RT SIDEACC ESSION # [id number] 323-006 2 _CT OF THE ABDOMEN AND [...] data data data MRMCDep artment of Diagnos ynwi725 [place] [phone] Patient : Sex: Age: Unit Number: STEVE BERMUDEZ 61 [id number] 180Orde ne Lundberg an: Status: Date of : Account Number: KAELA WELCH MD [facility] 953 [id number] ritika Lundberg an: Locatio n: Room Number: Date of Exam:LUCIA LYON [facility] 7REASON FOR EXAM: chest pressur eREASON FOR VISIT: afib episode ACCESSI ON # [id number] 0319-00 19 __Front al view of the [...] ZED source source AM RATIO data data (Inventory Specialist Manager ational Normali zed Ratio)i s depende nt [...] data data data MRMCDep artment of Diagnos ahqg954 [place] [phone] Patient : Sex: Age: Unit Number: STEVE BERMUDEZ F 61 [id number] 180Orde ne Physici an: Status: Date of : Account Number: RACHEL GOMEZ APRN REG CLI 953 [id number] ritika Physici an: Locatio n: Room Number: Date of Exam:LUCIA LYON [facility] 7REASON FOR EXAM:RE ASON FOR VISIT: UNIQUE [place],Z 78.0ACC ESSION # [id number] 0306-00 01 __Bone mineral density Compari son: [...] BN - 3:10 PM VIT D) [facility] [place] [address] [place], [place] [address] 61Lab Directo r: Joey Ferro MD, Phone: [phone] COMPREHENSIVE METABOLIC PANEL Observa Value Referen Units [...] Notes Date tion ce etation Range TEXT [place] No No No No Sep 29 DIAGNOS informa informa informa informa 2017 IS [place] tion in tion in tion in tion in 2:40 PM BATTERY l source source source source HealthE data data data data MRMCDep artment of Diagnos cpia799 [place] [phone] Patient : Sex: Age: Unit Number: STEVE BERMUDEZ F 61 [id number] 180Orde ne Physici an: Status: Date of : Account Number: RACHEL GOMEZ APRN REG CLI 953 [id number] ritika Physici an: Locatio n: Room Number: Date of Exam:LUCIA LYON EULT 7REASON FOR EXAM: R79.89 OTHER SPECIFI ED ABNORMA L FINDING S OF BLOODRE ASON FOR VISIT: R79.89 OTHER SPECIFI ED ABNORMA L FINDING S OF BLOODAC CESSION # [id number] 210-001 9 _THYROI D ULTRASO UNDIndi cation: [...] at: 2016 CB - 6:10 AM [facility] [place] [id number] 69Lab Directo r: Kaiser Nj ti PhD, Phone: [phone] THYROID STIMULATING HORMONE Observa Value Referen Units [...] Notes Date tion ce etation Range TEXT [place] No No No No Sep 07 DIAGNOS informa informa informa informa 2016 IS [place] tion in tion in tion in tion in 2:38 PM BATTERY l source source source source HealthE data data data data MRMCDep artment of Diagnos uupy608 [place] [phone] [phone] Patient : Sex: Age: Unit Number: STEVE BERMUDEZ 63 [id number] 180Orde ring Physici an: Status: Date of : Account Number: BILLY SANZ MD [facility] 953 [id number] ritika Physici an: Locatio n: Room Number: Date of Exam:LUCIA LYON EMAMM 7REASON FOR EXAM: RIGHT CALCS BREAST STEREO BXREASO N FOR VISIT: R92.0 MAMMOGR APHIC MICR/RT STEREO X 2ACCESS ION # [id number] 0119-00 21 __Vacuu m Assiste d Stereot actic right Breast Biopsy of two separat ecluste rs of microca lcifica tions with Specime n Radiogr aphs.Po stproce dural digital orthogo nal mammogr am on a [place] edACTV8 gram machine .Findin gs/Proc edure:A fter informe [...] data data data MRMCDep artment of Diagnos wuyf[address] [place] [phone] Patient : Sex: Age: Unit Number: STEVE BERMUDEZ F 61 [id number] 180Orde ne Physici an: Status: Date of : Account Number: BILLY SANZ MD [facility] 953 [id number] ritika Physici an: Locatio n: Room Number: Date of Exam:LUCIA LYON EMA 7REASON FOR EXAM: RIGHT BREAST STEREO BXREASO N FOR VISIT: R92.0 MAMMOGR APHIC MICR/RT STEREO X 2ACCESS ION # [id number] 0119-00 22 __Vacuu m Assiste d Stereot actic right Breast Biopsy of two separat ecluste rs of microca lcifica tions with Specime n Radiogr aphs.Po stproce dural digital orthogo nal mammogr am on a [place] edACTV8 gram machine .Findin gs/Proc edure:A fter informe [...] Notes Date tion ce etation Range TEXT [place] No No No No Sep 07 DIAGNOS informa informa informa informa 2017 IS [place] tion in tion in tion in tion in 2:38 PM BATTERY l source source source source HealthE data data data data [facility] Diagnos iwfk803 [place] [phone] Patient : Sex: Age: Unit Number: STEVE BERMUDEZ F 61 [id number] 180Orde ne Physici an: Status: Date of : Account Number: BILLY SANZ MD [facility] 953 [id number] ritika Lundberg an: Locatio n: Room Number: Date of Exam:LUCIA LYON EMA 7REASON FOR EXAM: RIGHT STEREO BXREASO N FOR VISIT: R92.0 MAMMOGR APHIC MICR/RT STEREO X 2ACCESS ION # [id number] 0119-00 23 __Vacuu m Assiste d Stereot [...] data data data MRMCDep artment of Diagnos wdhp075 [place] [phone] Patient : Sex: Age: Unit Number: STEVE BERMUDEZ 63 [id number] 180Orde [facility] Physici an: Status: Date of : Account Number: WILLIS ROJAS MD REG CLI 953 [id number] ritika Lundberg an: Locatio n: Room Number: Date of Exam:LUCIA LYON EMAMM 6REASON FOR EXAM: ABNORMA L MAMMREA SON FOR VISIT: RUDDY DIAG ADD VIEWS, POSS RUDDY BREAST U/SACCE SSION # [id number] 1216-00 19 __ADDIT IONAL VIEWS BILATER AL [...] 18:50__ ___ELIZABETH LOZANO MDDicta vicente: 6 1529Sig kenory : 6 1850 BRUNLIMLT Observa Value Referen Units Interpr Notes Date tion ce etation Range TEXT [place] No No No No Aug 04 DIAGNOS informa informa informa informa 2016 IS [place] tion in tion in tion in tion in 3:29 PM BATTERY l source source source source [facility] data data data data [facility] artment of Diagnos fgjk499 [place] [phone] Patient : Sex: Age: Unit Number: STEVE BERMUDEZ F 61 [id number] 180Orde ring Physici an: Status: Date of : Account Number: WILLIS ROJAS MD REG CLI 953 [id number] ritika Physici an: Locatio n: Room Number: Date of Exam:LUCIA LYON AN EMAMM 6REASON FOR EXAM: ABNORMA L MAMMREA SON FOR VISIT: RUDDY DIAG ADD VIEWS, POSS RUDDY BREAST U/SACCE SSION # [id number] 216-001 5 _ADDITI ONAL VIEWS BILATER AL [...] 10:13 BATTERY l source source source source [facility] data data data data [facility] art[facility] of Diagnos danb304 [place] [phone] [phone] Patient : Sex: Age: Unit Number: STEVE BERMUDEZ F 63 [id number] 180Orde ne Physici an: Status: Date of : Account Number: WILLIS ROJAS MD REG CLI 953 [id number] ritika Lundberg an: Locatio n: Room Number: Date of Exam:LUCIA LYON [facility] 6REASON FOR EXAM:RE ASON FOR VISIT: MIGUEL Z12.31A CCESSNAIN N # [id number] 1209-00 10 __SCRESonal TOUSSAINTG DIGITAL MAMMOGR APHY [...] data data data MRMCDep artment of Diagnos ucnn053 [facility] [place] [phone] [phone] Patient : Sex: Age: Unit Number: STEVE BERMUDEZ F 63 [id number] 180Orde ne Physici an: Status: Date of : Account Number: TRIAGE, TRIAGE X MD PRE ER 953 [id number] ritika Physici an: Locatio n: Room Number: Date of Exam:LUCIA LYON EE 6REASON FOR EXAM: PALPITA TIONS/C HEST PAINREA SON FOR VISIT: Geri OCASIO SSION # [id number] 1031-00 18 __Chest , single view.In dicatio [...] 2015 tion in 7:30 AM source data [id number] Observa Value Referen Units Interpr Notes Date tion ce etation Range TEXT [place]enzo No No No No May 15 DIAGNOS informa informa informa inform2015 IS [place] tion in tion in tion in tion in 1:18 PM BATTERY l source source source source HealthE data data data data MRMCDep artment of Diagnos ojmj521 [place] [phone] [phone] Patient : Sex: Age: Unit Number: STEVE BERMUDEZ 61 [id number] 180Orde ring Physici an: Status: Date of : Account Number: QUINTEN GONZALEZ PA-C REG CLI 953 [id number] ritika Physici an: Locatio n: Room Number: Date of Exam:LUCIA LYON EMRI 6REASON FOR EXAM: LBPREAS ON FOR VISIT: LOW BACK PAINACC ESSION # [id number] 0926-00 41 __Three views lumbar spine.I ndicati [...] Notes Date tion ce etation Range TEXT [place] No No No No May 15 DIAGNOS informa informa informa informa 2016 IS [place] tion in tion in tion in tion in 1:13 PM BATTERY l source source source source HealthE data data data data MRMCDep artment of Diagnos djhz195 [place] [phone] Patient : Sex: Age: Unit Number: STEVE BERMUDEZ F 61 [id number] 180Orde ring Physici an: Status: Date of : Account Number: QUINTEN GONZALEZ PA-C REG CLI 953 [id number] ritika Physici an: Locatio n: Room Number: Date of Exam:LUCIA LYON EMRI 6REASON FOR EXAM: LOW BACK PAINREA SON FOR VISIT: LOW BACK PAINACC ESSION # [id number] 0926-00 16 __MRI LUMBAR SPINE WITHOUT IV [...] data data data MRMCDep artment of Diagnos stec158 [facility] [place] [phone] [phone] Patient : Sex: Age: Unit Number: STEVE BERMUDEZ F 62 [id number] 180Orde ne Physici an: Status: Date of : Account Number: WILLIS ROJAS MD REG CLI 953 [id number] ritika Physicmarialuisa an: Locatio n: Room Number: Date of Exam:LUCIA LYON [facility] 5REASON FOR EXAM: SCREENI KAILYN N FOR VISIT: Z12.31/ SCREENI HILDA TERESO # [id number] 1027-00 02 __Scree farrah Digital mammogr aphy [...] Notes Date tion ce etation Range TEXT [place] No No No No Mar 31 DIAGNOS informa informa informa informa 2013 IS [place] tion in tion in tion in tion in 10:55 BATTERY l source source source source AM HealthE data data data data MRMCDep artment of Diagnos oylo700 [place] [phone] Patient : Sex: Age: Unit Number: STEVE BERMUDEZ F 59 [id number] 180Orde ring Physici an: Status: Date of : Account Number: WILLIS ROJAS MD REG CLI 953 [id number] ritika Physici an: Locatio n: Room Number: Date of Exam:CHALINO LYON MD [facility] 4REASON FOR EXAM:RE ASON FOR VISIT: V7.12 SCREENI NGACCES TERESO # [id number] 0811-00 14 __Scree farrah digital mammogr am [...] of maligna ncy; appropr iate action to [facility] Site 1 ____Ele ctrroldan floyd signed by: [...] 2013 ANTIGEN BN - 6:13 AM [facility] [address] [address]18[address] 61Lab Directo r: Joey Ferro MD, Phone: [phone] ANTITHROMBIN III ACTIVITY Observa Value Referen Units [...] e: >80Perf ormed at: CB - [facility] [place] [address] [address] [facility], [place], [place] [address] 69Lab Directo r: Darryl Alexis MD, Phone: [phone] D-DIMER, QUANTITATIVE Observa Value Referen Units Interpr [...] C-FUNCT BN - 6:14 AM IONAL [facility] [place] [address] [place], [place] [address] 61Lab Directo r: Joey Ferro MD, Phone: [phone] PROTEIN C ANTIGEN Observa Value Referen Units [...] 2013 PLASMA TG - 3:08 PM [facility] SUH5411 [place], [place] [address] 50Lab Directo r: Kita allison MD, Phone: [phone] ormed at: [facility] [address], [place], [place] [address] 69Lab Directo r: Darryl Alexis MD, Phone: [phone] FACTOR V LEIDEN MUTATION Observa Value Referen [...] the workup for venous thrombo sis include [id number] 10A mutatio n in the factor II [...] 08 : informa tic 2013 tion in pediatric genetic counselor 3:08 PM source ors are data availab le for health care provide rs to discuss results at [phone] [place] [address] (0322). Methodo logy:DN A analysi s of the [...] in - 3:13 PM source [facility] data [address] [address] 69Lab Directo r: Darryl Alexis MD, Phone: [phone] RHEUMATOID FACTOR, QUANT Observa Value Referen Units [...] Notes Date tion ce etation Range TEXT [place] No No No No Apr 14 DIAGNOS informa informa informa informa 2014 IS [place] tion in tion in tion in tion in 4:43 PM BATTERY l source source source source HealthE data data data data MRMCDep artment of Diagnos didb777 [facility] [place]UR[place] rodríguez [phone] [phone] Patient : Sex: Age: Unit Number: STEVE BERMUDEZ F 58 [id number] 180Orde ne Physici an: Status: Date of : Account Number: NARCISO KIM OWEN ADM IN 953 [id number] ritika Physici an: Locatio n: Room Number: Date of Exam:CHIKI SANTIAGO DPM ESWINGT ONIEL E114 4REASON FOR EXAM: R/O TRACI N FOR VISIT: N-STEMI ACCESSI ON # [id number] 460-710 8 _Ventil ation/p erfusio n lung scanInd [...] OF PATIENT NAME AND RESULTB Wojciech ARREOLA, COLD MILL INSPECTOR 4 0534 TROPONIN I (REPEAT) Observa Value [...] OF PATIENT NAME AND RESULTB Wojciech ARREOLA, COLD MILL INSPECTOR 4 2344 TROPONIN I (REPEAT) Observa Value [...] Notes Date tion ce etation Range TEXT [place] No No No No Nov 30 DIAGNOS informa informa informa informa 2013 IS [place] tion in tion in tion in tion in 4:58 PM BATTERY l source source source source HealthE data data data data MRMCDep artment of Diagnos ngof549 [place] [phone] [phone] Patient : Sex: Age: Unit Number: STEVE BERMUDEZ 58 [id number] 180Orde ne Physici an: Status: Date of : Account Number: NABEEL ARMSTRONG MD PRE ER 953 [id number] ritika Lundberg an: Locatio n: Room Number: Date of Exam:CHIKI SANTIAGO DPM EEMR 4REASON FOR EXAM: CHEST PAINREA SON FOR VISIT: SOA, LIGHT-H EADENES S, CHEST TIGHTNE SSACCES TERESO # [id number] 0413-00 68 __Chest , single view.In dicatio [...] PM ZED source source RATIO data data (Inventory Specialist Manager ational Normali zed Ratio)i s depende nt [...] NAME AND RESULTB Y PITO VICENTE MLT ([facility]) 4 1719 CBC WITH AUTO DIFFERENTIAL [...] data data data MRMCDep artment of Diagnos kplp488 [place] [phone] [phone] Patient : Sex: Age: Unit Number: STEVE BERMUDEZ F 57 [id number] [address] [facility] Physici an: Status: Date of : Account Number: WILLIS ROJAS MD REG CLI 953 [id number] ritika Physici an: Locatio n: Room Number: Date of Exam:WILLIS BRUNO MD [facility] 3REASON FOR EXAM:RE ASON FOR VISIT: V76.12/ SCREEN, V16.3AC CESSION # [id number] 0403-00 10 __Scree farrah digital mammogr am [...] of maligna ncy; appropr iate action to [facility] Site 1 ____Ele ctronic ally signed by: [...] NAME AND RESULTB Y STEVE [place], [place] ([facility]) 2 0637 MYOGLOBIN Observa Value Referen [...] NAME AND RESULTB Y MUNIRA Bisi [facility] 2031<= 0.034 (99TH PERCENT ILE OF NORMAL [...] +3sd provide s greater specifi city in [facility] nosis of the vitamin deficie ncy states, despite thesacr ifice of some sensiti vity.Pe rformed at: BN - [facility] [address] 8[address]693 61Lab Directo r: Joey Ferro MD, Phone: [phone] VITAMIN B12 Observa Value Referen Units Interpr [...] Notes Date tion ce etation Range TEXT [place] No No No No Sep 21 DIAGNOS informa informa informa informa 2012 IS [place] tion in tion in tion in tion in 10:55 BATTERY l source source source source AM HealthE data data data data MRMCDep artment of Diagnos ozyl092 [place] [address](2 [phone] Patient : Sex: Age: Unit Number: STEVE BERMUDEZ F 58 [id number] [address] [facility] Physici an: Status: Date of : Account Number: WILLIS ROJAS MD [facility] 953 [id number] Physici an: Locatio n: Room Num: Date of Exam:NO FAMILY, PHYSICMarialuisa [place] [facility] 2REASON FOR EXAM:RE ASON FOR VISIT: KENISHA HUGHES N # [id number] 0201-00 21 __BILAT ERAL SCREENI NG DIGITAL [...] ofspeci men.Per formed by BOB salgado,[address] [place] [address] [phone] [email or web address], Fatmata Laguerre MD, Lab. Directo r HPV VCE No No No No Sep 14 SOURCE: informa informa informa informa 2011 in in in in 10:00 source source source source AM data data data data
== END 2017-05-20 19:21 | disposition home or self-care (01) ==
LOC: ER 16:54
PROC: 0HQ0XZZ Repair Scalp Skin, External Approach (ICD-10-PCS; principal; 2017-05-20)
DX: S01.01XA Laceration without foreign body of scalp, initial encounter (principal); S09.90XA Unspecified injury of head, initial encounter; Z79.01 Long term (current) use of anticoagulants; Z88.6 Allergy status to analgesic agent; W17.89XA Other fall from one level to another, initial encounter; Y92.017 Garden or yard in single-family (private) house as the place of occurrence of the external cause; S60.812A Abrasion of left wrist, initial encounter; Z23 Encounter for immunization